=== PATIENT | male | born 1950 | race Caucasian/White ===

== ENCOUNTER 2020-10-22 14:53 | Outpatient (CLI) | payer MEDICARE, MEDICAID, SELFPAY ==
[2020-10-22 15:07] LABS: Basophils Absolute Auto 0.09 K/mm3 (0.00-0.10); Basophils Percent Auto 1.3 % (0.0-1.0); Eosinophils Absolute Auto 0.19 K/mm3 (0.02-0.50); Eosinophils Percent Auto 2.6 % (1.0-6.0); Hemoglobin 14.7 g/dL (12.4-15.3); Immature Granulocyte Absolute 0.01 K/mm3 (0.00-0.00); Immature Granulocyte Percent A 0.1 % (0.0-0.0); Lymphocytes Absolute Auto 2.86 K/mm3 (1.10-4.50); Lymphocytes Percent Auto 39.9 % (18.0-42.0); Mean Corpuscular HGB Conc 33.4 g/dL (32.0-36.0); Mean Corpuscular Hemoglobin 34.8 pg (27.0-31.0); Mean Corpuscular Volume 104.3 fL (78.0-102.0); Mean Platelet Volume 9.3 fl (8.7-11.0); Monocytes Absolute Auto 0.73 K/mm3 (0.10-0.90); Monocytes Percent Auto 10.2 % (2.0-11.0); Neutrophils Absolute Auto 3.3 K/mm3 (1.7-7.2); Neutrophils Percent Auto 45.9 % (50.0-70.0); Platelet Count Result 236 K/mm3 (150-420); Red Blood Count 4.22 M/mm3 (4.70-6.10); Red Cell Distribution Width 13.6 % (11.6-14.4); White Blood Count 7.2 K/mm3 (4.8-10.8)
[2020-10-22 16:26] LABS: Alanine Aminotransferase 37 U/L (16-63); Albumin Level 3.7 g/dL (3.4-5.0); Alkaline Phosphatase 77 U/L (46-116); Anion Gap 7 mmol/L (8-16); Aspartate Amino Transferase 27 U/L (15-37); Bilirubin,Total 0.3 mg/dL (0.00-1.00); Blood Urea Nitrogen 14 mg/dL (7-18); Calcium 8.7 mg/dL (8.5-10.1); Carbon Dioxide 31 mmol/L (21-32); Chloride 103 mmol/L (98-108); Cholesterol 216 mg/dL (0-200); Estimated Glomerular Filt Rate > 60; Glucose 86 mg/dL (70-99); HDL Direct 31 mg/dL (40-60); LDL Cholesterol Calculated 152 mg/dL (<130); Osmolality Calculated 291 mOsm/kg (285-295); Potassium 4.5 mmol/L (3.5-5.1); Sodium 141 mmol/L (136-145); Total Protein 7.2 g/dL (6.4-8.2); Triglycerides 167 mg/dL (0-150)
== END 2020-10-22 14:54 | disposition home or self-care (01) ==
LOC: CHSLAB 14:57
PROVIDERS: PCP Family Medicine; Visit Provider Family Medicine
DX: E66.01 Morbid (severe) obesity due to excess calories (principal); Z13.220 Encounter for screening for lipoid disorders; Z13.6 Encounter for screening for cardiovascular disorders
CPT/HCPCS: 36415; 80053; 80061; 85025

== ENCOUNTER 2024-12-02 09:45 | Emergency (ER) | payer MEDICARE, MEDICAID, SELFPAY ==
[2024-12-02] VITALS (19 sets, daily range): BP systolic 118–131; BP diastolic 57–89; PULSE 71–91; RESP 18; TEMP 36.8; O2SAT 93–99
--- NOTE | ~2024-12-02 | CT_ITS ---
EXAMINATION: CT cervical spine wo con DATE: 12/02/2024 10:52 INDICATION: Syncopal episode and altered mental status. TECHNIQUE: Computed tomography (CT) of the cervical spine was performed without intravenous contrast. Automated exposure control and iterative reconstruction technique were employed. The dose-length pro duct was 661.55 mGy-cm. COMPARISON: None FINDINGS: Mild upper thoracic levocurvature and minimal compensatory cervical dextrocurvature. Sagittal alignme nt is normal. Chronic appearing mild anterior vertebral body height loss at C5 and C6. No acute fract ure. Moderate to severe disc height loss with degenerative endplate changes and severe bilateral unco vertebral osteoarthritis at C5-C6. Mild disc height loss at C6-C7 and C7-T1. Disc bulge at C4-C5 and posterior disc osteophyte complexes at C5-C6 through C7-T1 contribute to multilevel central canal rosa nosis mild to moderate at C5-C6 and otherwise mild. Additional severe uncovertebral osteoarthritis on the left at C6-C7 with mild to moderate uncovertebral osteoarthritis at many of the remaining cervic al levels. There is also multilevel moderate to severe cervical facet osteoarthritis. This contribute s to moderate neural foraminal stenosis on the right at C2-C3, bilaterally at C5-C6 and on the left a t C6-7. Mild neural foraminal stenosis at many remaining cervical levels. Cervical soft tissues are u nremarkable. There is debris/cerumen at the bilateral external auditory canals. Visualized apices of lungs are clear. IMPRESSION: 1. Moderate to severe cervical spondylosis with chronic appearing mild anterior vertebral body height loss at C5 and C6. No acute osseous abnormality. Reviewed, dictated and finalized at location A.
--- NOTE | ~2024-12-02 | XR_ITS ---
Clinical Indication: Syncope PA and lateral views of the chest: Comparison: 08/31/2017 Findings: The lungs are clear, without evidence of focal consolidation or pleural effusion. Cardiome diastinal silhouette is stable. Bones and soft tissues are unremarkable. Impression: Clear lungs. Reviewed, dictated and finalized at location . Impression: Clear lungs.
--- NOTE | ~2024-12-02 | XR_ITS ---
Right elbow Technique: AP, oblique, and lateral views were obtained. Clinical History: Pain Findings: No acute fracture or dislocation is seen. Osseous alignment is anatomic. Joint spaces are p reserved. There is no displacement of the fat pads, and soft tissues are unremarkable. Impression: Unremarkable radiographs. Reviewed, dictated and finalized at location . Impression: Unremarkable radiographs.
--- NOTE | ~2024-12-02 | CT_ITS ---
Non-contrast Head CT History: Syncope Technique: Axial non-contrast imaging of the brain was performed. Dose reduction technique was used on this scan by utilizing automated exposure control and iterative reconstruction technique. The dose -length product (DLP) was 681.00 mGy-cm. Findings: There is no evidence of intracranial hemorrhage, mass lesion, or acute infarct. Brain par enchyma appears normal. The ventricles and subarachnoid spaces are normal in size. The calvarium ap pears normal. The visualized paranasal sinuses and mastoid air cells are clear. Impression: No significant abnormality seen. Reviewed, dictated and finalized at location . Impression: No significant abnormality seen.
--- NOTE | ~2024-12-02 | CT_ITS ---
Clinical Indication: Hypoxia CT Scan of the Chest with Contrast: Technique: Contiguous sections were acquired throughout the chest after intravenous administration of 100 cc of Omnipaque 350. Dose reduction technique was used on this scan by utilizing automated expos ure control and iterative reconstruction technique. The dose-length product (DLP) was 1071.76 mGy-cm. Findings: There is no evidence of any significant mediastinal, hilar or axillary lymphadenopathy. There is no f illing defect in the pulmonary arterial tree to suggest pulmonary embolus. There is no evidence of ao rtic dissection or aneurysm. There is no evidence of pleural or pericardial effusion. Lungs are clear. No pulmonary nodules or infiltrates are noted. Images through the upper abdomen reveal no abnormalities. Impression: No evidence of pulmonary embolus, aortic dissection, or aortic aneurysm. Clear lungs. Reviewed, dictated and finalized at [facility]. Impression: No evidence of pulmonary embolus, aortic dissection, or aortic aneurysm. Clear lungs.
--- NOTE | 2024-12-02 09:46 | ED.SYNCOPE ---
HPI - Syncope General Chief Complaint: Syncope Stated Complaint: syncope yesterday Time Seen by Provider: 12/02/24 09:46 Source: patient Mode of arrival: ambulatory Limitations: no limitations History of Present Illness HPI narrative: Patient is a 74-year-old male who lives at home alone and possibly had a syncopal episode yesterday but did fall to the ground from ground level and landed on his right elbow. Slight pain on the right elbow today. Patient was on the ground for up to 8 hours per history. Unclear if he soiled his undergarments as we notice a little bit on his lower extremities. Today his friend brought him to the ER for evaluation due to yesterday's events. No chest pain or shortness of breath. He appears somewhat winded upon exertion. No nausea vomiting or diarrhea or abdominal pain. No obvious neurological deficits. patient does not take any medication and has not seen a doctor in many years. MD complaint: collapsed Onset (ago): day(s) ( 2) -: minutes(s) ( patient collapsed with unclear possibly syncopal and said he was on the ground for 8 hours) Description of event: incontinence ( possibly stool) Prodromal symptoms: none Witnessed: No Context: other ( unclear situation but said he collapsed and was on the floor for 8 hours) Injuries sustained associated with event: RUE ( right elbow) Current symptoms: shortness of breath ( on exertion) and other ( right elbow pain) History: other ( none) Treatments prior to arrival: none Related Data Allergies Allergy/AdvReac Type Severity Reaction Status Date / Time No Known Allergies Allergy Verified 12/02/24 09:55 Review of Systems Review of Systems: All systems reviewed & are unremarkable except as noted in HPI and below Constitutional: Constitutional: Reports no additional constitutional complaints Eyes: Eyes: Reports no additional eye complaints ENT: Reports system reviewed and no additional complaints, except as documented Cardiovascular: Cardiovascular: Reports no additional cardiovascular complaints Respiratory: Respiratory: Reports no additional respiratory complaints Gastrointestinal: Gastrointestinal: Reports no additional gastrointestinal complaints Genitourinary: Genitourinary: Reports no additional male genitourinary complaints Musculoskeletal: Musculoskeletal: Reports no additional musculoskeletal complaints Integumentary/Breasts: Skin/Breast: Reports system reviewed and no additional complaints, except as docu Neurologic: Reports system reviewed and no additional complaints, except as documented Psychiatric: Psychiatric: Reports no additional psychiatric complaints Endocrine: Endocrine: Reports no additional endocrine complaints Hematologic/Lymphatic: Hematologic/Lymphatic: Reports no additional hematologic/lymphatic complaints Allergic/Immunologic: Allergic/Immunologic: Reports no additional allergic/immunologic complaints [facility] Past Medical History Medical History Encounter for lipid screening for cardiovascular disease Obesity, Class III, BMI 40-49.9 (morbid obesity) Social History Social History Smoking status: Never smoker Alcohol intake: current Substance use: never Living arrangements: alone Occupation/Education: retired Exam Const: General: healthy appearing and no acute distress Nutritional Appearance: well nourished and obese Orientation/consciousness: patient oriented x3 Limitations: no limitations HENMT: Head: normal to inspection Ears: external ears normal Face/Nose/Sinus: Normal external nose present Eyes: Conjunctivae: conjunctivae normal Pupils: Equal, round and reactive pupils present EOM: EOMs intact bilaterally Neck: Neck: normal visual inspection Chest: Chest palpation & inspection: normal inspection of the chest Resp: Effort & Inspection: normal respiratory effort and not labored Auscultation: clear to auscultation bilaterally and no crackles Cardio: Rate: regular rate Rhythm: regular rhythm Heart sounds: no murmurs GI: Inspection: non-distended GI Palp: Yes Soft to palpation and No Tenderness to palpation present (GI) Auscultation: normal bowel sounds : General: Yes bladder normal to palpation Back/Spine/Pelvis: Back: no CVA tenderness Skin: General skin exam: normal color Rashes: no rashes Wounds: no wounds Other: Patient has dirt on his back as well as some stool what appears to be on his lower extremities posteriorly Neuro: General: patient oriented x3, moves all extremities, no meningeal signs, no focal motor deficits and CN's II-XI intact bilaterally Cranial nerves: Yes Nystagmus not present Speech: normal speech Gait exam (Neuro): Normal gait present Other: fast exam is negative, NIH score is 0, GCS is 15 Extrem: General: normal to inspection Psych: Mental Status: mental status grossly normal Affect: normal affect Attitude: cooperative Course Vital Signs Vital signs: Vital Signs Pulse Rate 91 12/02/24 09:56 Oxygen Delivery Room Air 12/02/24 09:56 Temperature 36.8 C 12/02/24 10:00 Pulse Rate 71 12/02/24 10:00 Respiratory Rate 18 12/02/24 10:00 Blood Pressure 131/89 12/02/24 10:00 Pulse Oximetry 94 12/02/24 10:00 Oxygen Delivery Room Air 12/02/24 10:00 MDM - Syncope MDM Narrative Medical decision making narrative: patient is a 74-year-old male who has not seen a doctor in many years and not on medication with a collapse event yesterday and proceeded to stay on the ground for 8 hours due to the fact that he could not get off the floor. We will do a neurovascular workup at this time. we will transfer patient to [facility] for higher level medical care. Lab Data Attestation: I reviewed the patient's lab results. 12/02/24 10:16 12/02/24 10:16 Labs: Lab Results 12/02/24 12/02/24 12/02/24 Range/Units 09:54 10:16 12:33 WBC 19.4 H (4.8-10.8) K/mm3 RBC 4.37 L (4.70-6.10) M/mm3 Hgb 15.0 (12.4-15.3) g/dL Hct 44.8 (37.0-46.0) % MCV 102.5 H (78.0-102.0) fL MCH 34.3 H (27.0-31.0) pg MCHC 33.5 (32-36) g/dL RDW 13.7 (11.6-14.4) % Plt Count 212 (150-420) K/mm3 MPV 9.5 (8.7-11.0) fl Immature Gran % (Auto) 0.6 H (0.0-0.0) % Neut % (Auto) 79.4 H (50.0-70.0) % Lymph % (Auto) 10.2 L (18.0-42.0) % Lucas % (Auto) 9.3 (2.0-11.0) % Eos % (Auto) 0.1 L (1.0-6.0) % Baso % (Auto) 0.4 (0.0-1.0) % Lymph # (Auto) 1.97 (1.10-4.50) K/mm3 Lucas # (Auto) 1.80 H (0.10-0.90) K/mm3 Eos # (Auto) 0.01 L (0.02-0.50) K/mm3 Baso # (Auto) 0.08 (0.00-0.10) K/mm3 Abs Immat Gran (auto) 0.11 H (0.00-0.00) K/mm3 Absolute Neuts (auto) 15.40 H (1.70-7.20) K/mm3 Absolute Nucleated RBC 0.00 (0.00-0.00) K/mm3 Nucleated RBC % 0.0 (0-0.0) % PT 11.6 (9.50-12.1) Seconds INR 1.1 APTT 27.6 (23.9-30.70) Sec D-Dimer 0.97 H (0.19-0.50) mg/L Sodium 137 (137-145) mmol/L Potassium 4.2 (3.4-5.0) mmol/L Chloride 105 (98-107) mmol/L Carbon Dioxide 27 (22-30) mmol/L Anion Gap 5 (4-12) mmol/L BUN 24 H (9-20) mg/dL Creatinine 1.89 H (0.7-1.3) mg/dL Estim Creat Clear Calc Not Reportable Estimated GFR 35 L (59 - ) Glucose 110 (65-110) mg/dL Calculated Osmolality 289 (285-295) mOsm/kg Lactic Acid 1.0 (0.4-2.0) mmol/L Calcium 8.7 (8.4-10.2) mg/dL Total Bilirubin 2.3 H (0.2-1.3) mg/dL AST > 750 H (17-59) U/L ALT 147 H (6-50) U/L Alkaline Phosphatase 75 (38-126) U/L Total Creatine Kinase > 99608 H (55-170) U/L Troponin I 0.013 < 0.012 (0.000-0.034) ng/mL NT-Pro-B Natriuret Pep 575 H (19.9-100) pg/mL Total Protein 7.7 (6.3-8.2) g/dL Albumin 4.0 (3.5-5.1) g/dL Urine Color Yellow (Yellow) Urine Appearance Sl cloudy A (Clear) Urine pH 6.0 (5.0-8.0) Ur Specific [place] 1.015 (1.010-1.020) Urine Protein 3+ H (Negative) Urine Glucose (UA) Negative (Negative) Urine Ketones Negative (Negative) Ur Blood (Man) 3+ H (Negative) Urine Nitrate Positive H (Negative) Urine Bilirubin 1+ H (Negative) Urine Urobilinogen 1.0 (0.2-1.0) mg/dL Leukocyte Esterase Rfl 2+ H (Negative) ANUP/UL Urine RBC 6-10 H (0-2) /hpf Urine WBC 31-50 H (0-3) /hpf Ur Squamous Epith Cells Rare (Few) /hpf Urine Bacteria 2+ H (None) /hpf Imaging Data Attestation: I personally reviewed and interpreted this imaging study as follows: Radiologist's impression: chest x-rays negative for acute process CT scan of the head is negative for acute process CT scan of cervical spine is negative for acute process x-ray of right elbow is negative for acute process CTA of the chest is negative for acute process ECG Data EKG #1: Attestation: I personally reviewed and interpreted this ECG as follows: ECG completion date: 12/02/24 ECG completion time: 10:11 EKG Interpretation: normal rate, sinus rhythm, no ectopy, non-specific ST changes, normal QRS, normal QT and left axis Discharge Plan Discharge Clinical Impression: Sepsis secondary to UTI, Acute dehydration, Transaminitis, VALERIE (acute kidney injury), Hypoxia Rhabdomyolysis Qualifiers: Rhabdomyolysis type: traumatic Encounter type: initial encounter Qualified Code(s): T79.6XXA - Traumatic ischemia of muscle, initial encounter Patient Disposition: Acute Care Hospital Condition: Stable Patient Language: [place] Prescriptions: No Action atorvastatin 40 mg tablet 40 mg PO DAILY Qty: 90 3RF Follow-up/Referrals: Jude Connor MD [Primary Care Provider] - Time of Disposition: 11:57
--- OUTSIDE RECORDS SUMMARY | 2024-12-02 10:00 | XMS_ITS | Continuity of Care Document ---
Author Name [facility] Organization [facility] Care Team Providers Care Nremt Name Role Phone [facility] Unavailable Unavailable Problems Combined list of problems from Department of Defense and Veterans Affairs facilities. It does not include entries that were removed or entered in error. Problem Status Onset Date Problem Type Date of Resolution Comments Source Hyperlipidemia Active Condition [facility] Impaired Fasting Glucose (SCT [id number]) Active Condition [facility] Nightmare Active Condition [facility] Immunizations Combined list of available immunizations from the Department of Defense and Veterans Affairs facilities. Immunization Series Date Given Administered By Site Reaction Lot Number CVX Code Drug Sqe Status Comments Source COVID-19 (MODERNA), MRNA, LNP-S, PF, 100 MCG/0.5ML DOSE OR 50 MCG/0.25ML DOSE 3 2020 207 complet ed [employer]IST[employer]ICA L [employer] ON - FROM OTHER REGISTRY, [facility] COVID-19 (MODERNA), MRNA, LNP-S, PF, 100 MCG/0.5ML DOSE OR 50 MCG/0.25ML DOSE 2 2020 207 complet ed HISTORICA L INFORMATI ON - FROM OTHER REGISTRY, [facility] COVID-19 (MODERNA), MRNA, LNP-S, PF, 100 MCG/0.5ML DOSE OR 50 MCG/0.25ML DOSE 1 2020 207 complet ed HISTORICA L INFORMATI ON - FROM OTHER REGISTRY, [facility] INFLUENZA, INJECTABLE, QUADRIVALENT 2018 158 complet ed 02, Partner: [facility]. Administe red by: [facility] Clinician (NPI=Not Provided) . Partner 91 Lot#: [id number] Mfr: [facility] INFLUENZA, INJECTABLE, QUADRIVALENT, PRESERVATIVE FREE 2017 150 complet ed 02, Partner: [facility]. [facility] (NPI=Not Provided[facility] . Partner 91 Lot#: [id number] Mfr: [employer] [facility] INFLUENZA, INJECTABLE, QUADRIVALENT, PRESERVATIVE FREE 1 2017 150 complet ed HISTORICA L INFORMATI ON - FROM OTHER REGISTRY, [facility] INFLUENZA (HISTORICAL) 2003 88 complet ed [facility] TD(ADULT) UNSPECIFIED FORMULATION 1993 139 complet ed MAY BE OVERDUE [facility] Results Combined list of recent chemistry, hematology and other laboratory results from Department of Defense and Veterans Affairs, ranging from 15 months to all on record, depending upon the facility. Order Name Results Value Reference Range Date Interpretation Specimen Comments Source OCCULT BLOOD FIT X1 SCREEN (550) HEMOGLOBIN .GASTROINT ESTINAL.LO WER [PRESENCE] IN STOOL BY IMMUNOASSA Y POSITIVE 02/18 Specimen Type: FECES No comment entered. Ordering Provider: AMELIA GONZALEZ Report Released Date/Time: Feb 16, 2023 09:30 AM Reporting Lab: [address] [address] Performing Lab: [address] [address] [facility] CBC W/DIFF LEUKOCYTES [#/VOLUME] IN BLOOD BY AUTOMATED COUNT 8.7 10*3/uL 4.0 - 11.0 02/16 Specimen Type: BLOOD No comment entered. Ordering Provider: AMELIA GONZALEZ Report Released Date/Time: Feb 16, 2023 09:45 AM Reporting Lab: [address] [address] Performing Lab: [address] [address] [facility] CBC W/DIFF ERYTHROCYT ES [#/VOLUME] IN BLOOD BY AUTOMATED COUNT 4.57 10*6/uL 4.20 - 5.70 02/16 Specimen Type: BLOOD No comment entered. Ordering Provider: AMELIA GONZALEZ Report Released Date/Time: Feb 16, 2023 09:45 AM Reporting Lab: [address] [address] Performing Lab: [address] [address] [facility] CBC W/DIFF HEMOGLOBIN [MASS/VOLU ME] IN BLOOD 15.9 g/dL 13.0 - 17.0 02/16 Specimen Type: BLOOD No comment entered. Ordering Provider: AMELIA GONZALEZ Report Released Date/Time: Feb 16, 2023 09:45 AM Reporting Lab: [address] [address] Performing Lab: [address] [address] [facility] CBC W/DIFF HEMATOCRIT [VOLUME FRACTION] OF BLOOD BY AUTOMATED COUNT 47.6 40.0 - 51.0 02/16 Specimen Type: BLOOD No comment entered. Ordering Provider: AMELIA GONZALEZ Report Released Date/Time: Feb 16, 2023 09:45 AM Reporting Lab: [address] [address] Performing Lab: [address] [address] [facility] CBC W/DIFF MCV [ENTITIC VOLUME] BY AUTOMATED COUNT 104.2 fL 82 - 99 02/16 H Specimen Type: BLOOD No comment entered. Ordering Provider: AMELIA GONZALEZ Report Released Date/Time: Feb 16, 2023 09:45 AM Reporting Lab: [address] [address] Performing Lab: [address] [address] [facility] CBC W/DIFF MCHC [MASS/VOLU ME] BY AUTOMATED COUNT 34.8 pg 27 - 34 02/16 H Specimen Type: BLOOD No comment entered. Ordering Provider: AMELIA GONZALEZ Report Released Date/Time: Feb 16, 2023 09:45 AM Reporting Lab: [address] [address] Performing Lab: [address] [address] [facility] CBC W/DIFF MCHC [MASS/VOLU ME] BY AUTOMATED COUNT 33.4 g/dL 31 - 37 02/16 Specimen Type: BLOOD No comment entered. Ordering Provider: AMELIA GONZALEZ Report Released Date/Time: Feb 16, 2023 09:45 AM Reporting Lab: [address] [address] Performing Lab: [facility] [address] [facility] [address] [facility] CBC W/DIFF PLATELET MEAN VOLUME [ENTITIC VOLUME] IN BLOOD BY AUTOMATED COUNT 10.3 fL 8 - 12 02/16 Specimen Type: BLOOD No comment entered. Ordering Provider: AMELIA GONZALEZ Report Released Date/Time: Feb 16, 2023 09:45 AM Reporting Lab: [address] [address] Performing Lab: [address] [address] [facility] CBC W/DIFF PLATELETS [#/VOLUME] IN BLOOD BY AUTOMATED COUNT 265 10*3/uL 130 - 400 02/16 Specimen Type: BLOOD No comment entered. Ordering Provider: AMELIA GONZALEZ Report Released Date/Time: Feb 16, 2023 09:45 AM Reporting Lab: [address] [address] Performing Lab: [address] [address] [facility] CBC W/DIFF ERYTHROCYT E DISTRIBUTI ON WIDTH [RATIO] BY AUTOMATED COUNT 13.4 < 15.0 - 15.0 02/16 Specimen Type: BLOOD No comment entered. Ordering Provider: AMELIA GONZALEZ Report Released Date/Time: Feb 16, 2023 09:45 AM Reporting Lab: [address] [address] Performing Lab: [address] [address] [facility] CBC W/DIFF NEUTROPHIL S/100 LEUKOCYTES IN BLOOD BY AUTOMATED COUNT 62.8 02/16 Specimen Type: BLOOD No comment entered. Ordering Provider: AMELIA GONZALEZ Report Released Date/Time: Feb 16, 2023 09:45 AM Reporting Lab: [address] [address] Performing Lab: [address] [address] [facility] CBC W/DIFF LYMPHOCYTE S/100 LEUKOCYTES IN BLOOD BY AUTOMATED COUNT 26.1 02/16 Specimen Type: BLOOD No comment entered. Ordering Provider: AMELIA GONZALEZ Report Released Date/Time: Feb 16, 2023 09:45 AM Reporting Lab: [address] [address] Performing Lab: [address] [address] [facility] CBC W/DIFF MONOCYTES/ 100 LEUKOCYTES IN BLOOD BY AUTOMATED COUNT 9.1 02/16 Specimen Type: BLOOD No comment entered. Ordering Provider: AMELIA GONZALEZ Report Released Date/Time: Feb 16, 2023 09:45 AM Reporting Lab: [address] [address] Performing Lab: [address] [address] [facility] CBC W/DIFF EOSINOPHIL S/100 LEUKOCYTES IN BLOOD BY AUTOMATED COUNT 0.8 02/16 Specimen Type: BLOOD No comment entered. Ordering Provider: AMELIA GONZALEZ Report Released Date/Time: Feb 16, 2023 09:45 AM Reporting Lab: [address] [address] Performing Lab: [address] [address] [facility] CBC W/DIFF BASOPHILS/ 100 LEUKOCYTES IN BLOOD BY AUTOMATED COUNT 1.0 02/16 Specimen Type: BLOOD No comment entered. Ordering Provider: AMELIA GONZALEZ Report Released Date/Time: Feb 16, 2023 09:45 AM Reporting Lab: [address] [address] Performing Lab: [address] [address] [facility] CBC W/DIFF IMMATURE GRANULOCYT ES/100 LEUKOCYTES IN BLOOD 0.2 02/16 Specimen Type: BLOOD No comment entered. Ordering Provider: AMELIA GONZALEZ Report Released Date/Time: Feb 16, 2023 09:45 AM Reporting Lab: [address] [address] Performing Lab: [address] [address] [facility] CBC W/DIFF NEUTROPHIL S [#/VOLUME] IN BLOOD BY AUTOMATED COUNT 5.5 10*3/uL 1.5 - 8.0 02/16 Specimen Type: BLOOD No comment entered. Ordering Provider: AMELIA GONZALEZ Report Released Date/Time: Feb 16, 2023 09:45 AM Reporting Lab: [address] [address] Performing Lab: [address] [address] [facility] CBC W/DIFF LYMPHOCYTE S [#/VOLUME] IN BLOOD BY AUTOMATED COUNT 2.3 10*3/uL 1.0 - 4.0 02/16 Specimen Type: BLOOD No comment entered. Ordering Provider: AMELIA GONZALEZ Report Released Date/Time: Feb 16, 2023 09:45 AM Reporting Lab: [address] [address] Performing Lab: [address] [address] [facility] CBC W/DIFF MONOCYTES [#/VOLUME] IN BLOOD BY AUTOMATED COUNT 0.8 10*3/uL 0.2 - 1.0 02/16 Specimen Type: BLOOD No comment entered. Ordering Provider: AMELIA GONZALEZ Report Released Date/Time: Feb 16, 2023 09:45 AM Reporting Lab: [address] [address] Performing Lab: [address] [address] [facility] CBC W/DIFF EOSINOPHIL S [#/VOLUME] IN BLOOD BY AUTOMATED COUNT 0.1 10*3/uL 0 - 0.4 02/16 Specimen Type: BLOOD No comment entered. Ordering Provider: AMELIA GONZALEZ Report Released Date/Time: Feb 16, 2023 09:45 AM Reporting Lab: [address] [address] Performing Lab: [address] [address] [facility] CBC W/DIFF BASOPHILS [#/VOLUME] IN BLOOD BY AUTOMATED COUNT 0.1 10*3/uL 0 - 0.2 02/16 Specimen Type: BLOOD No comment entered. Ordering Provider: AMELIA GONZALEZ Report Released Date/Time: Feb 16, 2023 09:45 AM Reporting Lab: [address] [address] Performing Lab: [facility] [address] [facility] [address] [facility] CBC W/DIFF IMMATURE GRANULOCYT ES/100 LEUKOCYTES IN BLOOD <0.110*3 /uL 0 - 0.5 02/16 Specimen Type: BLOOD No comment entered. Ordering Provider: AMELIA GONZALEZ Report Released Date/Time: Feb 16, 2023 09:45 AM Reporting Lab: [address] [address] Performing Lab: [address] [address] [facility] CBC W/DIFF NUCLEATED ERYTHROCYT ES/100 ERYTHROCYT ES IN BLOOD 0.0 /100{WBC s} 0 - 0.2 02/16 Specimen Type: BLOOD No comment entered. Ordering Provider: AMELIA GONZALEZ Report Released Date/Time: Feb 16, 2023 09:45 AM Reporting Lab: [address] [address] Performing Lab: [address] [address] [facility] CBC W/DIFF NUCLEATED ERYTHROCYT ES [#/VOLUME] IN BLOOD <0.0110* 3/uL 0 - 0.012 02/16 Specimen Type: BLOOD No comment entered. Ordering Provider: AMELIA GONZALEZ Report Released Date/Time: Feb 16, 2023 09:45 AM Reporting Lab: [address] [address] Performing Lab: [address] [address] [facility] A1C % HEMOGLOBIN A1C/HEMOGL OBIN.TOTAL IN BLOOD 5.7 0.0 - 5.6 02/16 H Specimen Type: BLOOD Comment: Normal: < or = 5.6% Pre-diabete s: 5.7-6.4% Diabetes Mellitus: > or = 6.5% Values obtained from A1C measurement s can vary. For typical A1C assays, a reported value of 7.0 could actually be between 6.72 and 7.28 if measured by a reference method. A reported value of 9.0 could actually be between 8.73 and 9.27. Ref: http://www. ngsp.org/[place] Pdata.asp Ordering Provider: AMELIA GONZALEZ Report Released Date/Time: Feb 16, 2023 09:45 AM Reporting Lab: [address] [address] Performing Lab: [address] [address] [facility] COMPREHE NSIVE PNL ANION GAP IN SERUM OR PLASMA 14 mmol/L - 02/16 Specimen Type: PLASMA Comment: Low-risk levels (desirable) <200 mg/dL Moderate-ri sk levels (borderline ) 200-239 mg/dL High-risk levels: >= 240 mg/dL Normal: <150 mg/dL -Borderline High: 1580-199 mg/dL -High: 200-499 mg/dL -Very High: >500 mg/dL eGFR was calculated using the CKD-EPI Creatinine (2020) equation. Optimal: <100 mg/dL -Near Optimal/Abo ve Optimal: 100-129 mg/dL -Borderline High: 130-159 mg/dL -High: 160-189 mg/dL -Very High: >=190 mg/dL Ordering Provider: AMELIA GONZALEZ Report Released Date/Time: Feb 16, 2023 09:45 AM Reporting Lab: [address] [address] Performing Lab: [address] [address] [facility] COMPREH NSIVE PNL GLOMERULAR FILTRATION RATE/1.73 SQ M.PREDICTE D [VOLUME RATE/AREA] IN SERUM, PLASMA OR BLOOD BY CREATININE -BASED FORMULA (CKD-EPI 2020) 87 mL/min 60 02/16 Specimen Type: PLASMA Comment: Low-risk levels (desirable) <200 mg/dL Moderate-ri sk levels (borderline ) 200-239 mg/dL High-risk levels: >= 240 mg/dL Normal: <150 mg/dL -Borderline High: 1580-199 mg/dL -High: 200-499 mg/dL -Very High: >500 mg/dL eGFR was calculated using the CKD-EPI Creatinine (2020) equation. Optimal: <100 mg/dL -Near Optimal/Abo ve Optimal: 100-129 mg/dL -Borderline High: 130-159 mg/dL -High: 160-189 mg/dL -Very High: >=190 mg/dL Ordering Provider: AMELIA GONZALEZ Report Released Date/Time: Feb 16, 2023 09:45 AM Reporting Lab: [address] [address] Performing Lab: [address] [address] [facility] COMPREHE NSIVE PNL GLUCOSE [MASS/VOLU ME] IN SERUM OR PLASMA 88 mg/dL 70 - 99 02/16 Specimen Type: PLASMA Comment: Low-risk levels (desirable) <200 mg/dL Moderate-ri sk levels (borderline ) 200-239 mg/dL High-risk levels: >= 240 mg/dL Normal: <150 mg/dL -Borderline High: 1580-199 mg/dL -High: 200-499 mg/dL -Very High: >500 mg/dL eGFR was calculated using the CKD-EPI Creatinine (2020) equation. Optimal: <100 mg/dL -Near Optimal/Abo ve Optimal: 100-129 mg/dL -Borderline High: 130-159 mg/dL -High: 160-189 mg/dL -Very High: >=190 mg/dL Ordering Provider: AMELIA GONZALEZ Report Released Date/Time: Feb 16, 2023 09:45 AM Reporting Lab: [address] [address] Performing Lab: [address] [address] [facility] COMPREHE NSIVE PNL POTASSIUM [MOLES/VOL UME] IN SERUM OR PLASMA 4.3 mmol/L 3.5 - 4.7 02/16 Specimen Type: PLASMA Comment: Low-risk levels (desirable) <200 mg/dL Moderate-ri sk levels (borderline ) 200-239 mg/dL High-risk levels: >= 240 mg/dL Normal: <150 mg/dL -Borderline High: 1580-199 mg/dL -High: 200-499 mg/dL -Very High: >500 mg/dL eGFR was calculated using the CKD-EPI Creatinine (2020) equation. Optimal: <100 mg/dL -Near Optimal/Abo ve Optimal: 100-129 mg/dL -Borderline High: 130-159 mg/dL -High: 160-189 mg/dL -Very High: >=190 mg/dL Ordering Provider: AMELIA GONZALEZ Report Released Date/Time: Feb 16, 2023 09:45 AM Reporting Lab: [address] [address] Performing Lab: [address] [address] [facility] COMPREHE NSIVE PNL SODIUM [MOLES/VOL UME] IN SERUM OR PLASMA 138 mmol/L 136 - 145 02/16 Specimen Type: PLASMA Comment: Low-risk levels (desirable) <200 mg/dL Moderate-ri sk levels (borderline ) 200-239 mg/dL High-risk levels: >= 240 mg/dL Normal: <150 mg/dL -Borderline High: 1580-199 mg/dL -High: 200-499 mg/dL -Very High: >500 mg/dL eGFR was calculated using the CKD-EPI Creatinine (2020) equation. Optimal: <100 mg/dL -Near Optimal/Abo ve Optimal: 100-129 mg/dL -Borderline High: 130-159 mg/dL -High: 160-189 mg/dL -Very High: >=190 mg/dL Ordering Provider: AMELIA GONZALEZ Report Released Date/Time: Feb 16, 2023 09:45 AM Reporting Lab: [address] [address] Performing Lab: [address] [address] [facility] COMPREHE NSIVE PNL BILIRUBIN. TOTAL [MASS/VOLU ME] IN SERUM OR PLASMA 0.6 mg/dL 0.2 - 1.2 02/16 Specimen Type: PLASMA Comment: Low-risk levels (desirable) <200 mg/dL Moderate-ri sk levels (borderline ) 200-239 mg/dL High-risk levels: >= 240 mg/dL Normal: <150 mg/dL -Borderline High: 1580-199 mg/dL -High: 200-499 mg/dL -Very High: >500 mg/dL eGFR was calculated using the CKD-EPI Creatinine (2020) equation. Optimal: <100 mg/dL -Near Optimal/Abo ve Optimal: 100-129 mg/dL -Borderline High: 130-159 mg/dL -High: 160-189 mg/dL -Very High: >=190 mg/dL Ordering Provider: AMELIA GONZALEZ Report Released Date/Time: Feb 16, 2023 09:45 AM Reporting Lab: [address] [address] Performing Lab: [address] [address] [facility] COMPREHE NSIVE PNL PROTEIN [MASS/VOLU ME] IN SERUM OR PLASMA 7.5 g/dL 5.7 - 8.2 02/16 Specimen Type: PLASMA Comment: Low-risk levels (desirable) <200 mg/dL Moderate-ri sk levels (borderline ) 200-239 mg/dL High-risk levels: >= 240 mg/dL Normal: <150 mg/dL -Borderline High: 1580-199 mg/dL -High: 200-499 mg/dL -Very High: >500 mg/dL eGFR was calculated using the CKD-EPI Creatinine (2020) equation. Optimal: <100 mg/dL -Near Optimal/Abo ve Optimal: 100-129 mg/dL -Borderline High: 130-159 mg/dL -High: 160-189 mg/dL -Very High: >=190 mg/dL Ordering Provider: AMELIA GONZALEZ Report Released Date/Time: Feb 16, 2023 09:45 AM Reporting Lab: [address] [address] Performing Lab: [address] [address] [facility] COMPREHE NSIVE PNL ALBUMIN [MASS/VOLU ME] IN SERUM OR PLASMA 4.5 g/dL 3.4 - 5.0 02/16 Specimen Type: PLASMA Comment: Low-risk levels (desirable) <200 mg/dL Moderate-ri sk levels (borderline ) 200-239 mg/dL High-risk levels: >= 240 mg/dL Normal: <150 mg/dL -Borderline High: 1580-199 mg/dL -High: 200-499 mg/dL -Very High: >500 mg/dL eGFR was calculated using the CKD-EPI Creatinine (2020) equation. Optimal: <100 mg/dL -Near Optimal/Abo ve Optimal: 100-129 mg/dL -Borderline High: 130-159 mg/dL -High: 160-189 mg/dL -Very High: >=190 mg/dL Ordering Provider: AMELIA GONZALEZ Report Released Date/Time: Feb 16, 2023 09:45 AM Reporting Lab: [address] [address] Performing Lab: [address] [address] [facility] COMPREHE NSIVE PNL ALKALINE PHOSPHATAS E [ENZYMATIC ACTIVITY/V OLUME] IN SERUM OR PLASMA 69 U/L 45 - 117 02/16 Specimen Type: PLASMA Comment: Low-risk levels (desirable) <200 mg/dL Moderate-ri sk levels (borderline ) 200-239 mg/dL High-risk levels: >= 240 mg/dL Normal: <150 mg/dL -Borderline High: 1580-199 mg/dL -High: 200-499 mg/dL -Very High: >500 mg/dL eGFR was calculated using the CKD-EPI Creatinine (2020) equation. Optimal: <100 mg/dL -Near Optimal/Abo ve Optimal: 100-129 mg/dL -Borderline High: 130-159 mg/dL -High: 160-189 mg/dL -Very High: >=190 mg/dL Ordering Provider: AMELIA GONZALEZ Report Released Date/Time: Feb 16, 2023 09:45 AM Reporting Lab: [address] [address] Performing Lab: [address] [address] [facility] COMPREHE NSIVE PNL ALANINE AMINOTRANS FERASE [ENZYMATIC ACTIVITY/V OLUME] IN SERUM OR PLASMA 27 U/L 10 - 65 02/16 Specimen Type: PLASMA Comment: Low-risk levels (desirable) <200 mg/dL Moderate-ri sk levels (borderline ) 200-239 mg/dL High-risk levels: >= 240 mg/dL Normal: <150 mg/dL -Borderline High: 1580-199 mg/dL -High: 200-499 mg/dL -Very High: >500 mg/dL eGFR was calculated using the CKD-EPI Creatinine (2020) equation. Optimal: <100 mg/dL -Near Optimal/Abo ve Optimal: 100-129 mg/dL -Borderline High: 130-159 mg/dL -High: 160-189 mg/dL -Very High: >=190 mg/dL Ordering Provider: AMELIA GONZALEZ Report Released Date/Time: Feb 16, 2023 09:45 AM Reporting Lab: [address] [address] Performing Lab: [address] [address] [facility] COMPREHE NSIVE PNL ASPARTATE AMINOTRANS FERASE [ENZYMATIC ACTIVITY/V OLUME] IN SERUM OR PLASMA 25 U/L 10 - 02/16 Specimen Type: PLASMA Comment: Low-risk levels (desirable) <200 mg/dL Moderate-ri sk levels (borderline ) 200-239 mg/dL High-risk levels: >= 240 mg/dL Normal: <150 mg/dL -Borderline High: 1580-199 mg/dL -High: 200-499 mg/dL -Very High: >500 mg/dL eGFR was calculated using the CKD-EPI Creatinine (2020) equation. Optimal: <100 mg/dL -Near Optimal/Abo ve Optimal: 100-129 mg/dL -Borderline High: 130-159 mg/dL -High: 160-189 mg/dL -Very High: >=190 mg/dL Ordering Provider: AMELIA GONZALEZ Report Released Date/Time: Feb 16, 2023 09:45 AM Reporting Lab: [address] [address] Performing Lab: [address] [address] [facility] COMPREHE NSIVE PNL UREA NITROGEN [MASS/VOLU ME] IN SERUM OR PLASMA 12 mg/dL 7 - 02/16 Specimen Type: PLASMA Comment: Low-risk levels (desirable) <200 mg/dL Moderate-ri sk levels (borderline ) 200-239 mg/dL High-risk levels: >= 240 mg/dL Normal: <150 mg/dL -Borderline High: 1580-199 mg/dL -High: 200-499 mg/dL -Very High: >500 mg/dL eGFR was calculated using the CKD-EPI Creatinine (2020) equation. Optimal: <100 mg/dL -Near Optimal/Abo ve Optimal: 100-129 mg/dL -Borderline High: 130-159 mg/dL -High: 160-189 mg/dL -Very High: >=190 mg/dL Ordering Provider: AMELIA GONZALEZ Report Released Date/Time: Feb 16, 2023 09:45 AM Reporting Lab: [address] [address] Performing Lab: [address] [address] [facility] COMPREHE NSIVE PNL CALCIUM, TOTAL 9.4 mg/dL 8.7 - 10.4 02/16 Specimen Type: PLASMA Comment: Low-risk levels (desirable) <200 mg/dL Moderate-ri sk levels (borderline ) 200-239 mg/dL High-risk levels: >= 240 mg/dL Normal: <150 mg/dL -Borderline High: 1580-199 mg/dL -High: 200-499 mg/dL -Very High: >500 mg/dL eGFR was calculated using the CKD-EPI Creatinine (2020) equation. Optimal: <100 mg/dL -Near Optimal/Abo ve Optimal: 100-129 mg/dL -Borderline High: 130-159 mg/dL -High: 160-189 mg/dL -Very High: >=190 mg/dL Ordering Provider: AMELIA GONZALEZ Report Released Date/Time: Feb 16, 2023 09:45 AM Reporting Lab: [address] [address] Performing Lab: [address] [address] [facility] COMPREHE NSIVE PNL CARBON DIOXIDE, TOTAL [MOLES/VOL UME] IN SERUM OR PLASMA 27.0 mmol/L 21.0 - 32.0 02/16 Specimen Type: PLASMA Comment: Low-risk levels (desirable) <200 mg/dL Moderate-ri sk levels (borderline ) 200-239 mg/dL High-risk levels: >= 240 mg/dL Normal: <150 mg/dL -Borderline High: 1580-199 mg/dL -High: 200-499 mg/dL -Very High: >500 mg/dL eGFR was calculated using the CKD-EPI Creatinine (2020) equation. Optimal: <100 mg/dL -Near Optimal/Abo ve Optimal: 100-129 mg/dL -Borderline High: 130-159 mg/dL -High: 160-189 mg/dL -Very High: >=190 mg/dL Ordering Provider: AMELIA GONZALEZ Report Released Date/Time: Feb 16, 2023 09:45 AM Reporting Lab: [address] [address] Performing Lab: [address] [address] [facility] COMPREHE NSIVE PNL CHLORIDE [MOLES/VOL UME] IN SERUM OR PLASMA 101 mmol/L 98 - 109 02/16 Specimen Type: PLASMA Comment: Low-risk levels (desirable) <200 mg/dL Moderate-ri sk levels (borderline ) 200-239 mg/dL High-risk levels: >= 240 mg/dL Normal: <150 mg/dL -Borderline High: 1580-199 mg/dL -High: 200-499 mg/dL -Very High: >500 mg/dL eGFR was calculated using the CKD-EPI Creatinine (2020) equation. Optimal: <100 mg/dL -Near Optimal/Abo ve Optimal: 100-129 mg/dL -Borderline High: 130-159 mg/dL -High: 160-189 mg/dL -Very High: >=190 mg/dL Ordering Provider: AMELIA GONZALEZ Report Released Date/Time: Feb 16, 2023 09:45 AM Reporting Lab: [address] [id number] Performing Lab: [address] [phone] [facility] COMPREHE NSIVE PNL CREATININE [MASS/VOLU ME] IN URINE 0.92 mg/dL 0.67 - 1.17 02/16 Specimen Type: PLASMA Comment: Low-risk levels (desirable) <200 mg/dL Moderate-ri sk levels (borderline ) 200-239 mg/dL High-risk levels: >= 240 mg/dL Normal: <150 mg/dL -Borderline High: 1580-199 mg/dL -High: 200-499 mg/dL -Very High: >500 mg/dL eGFR was calculated using the CKD-EPI Creatinine (2020) equation. Optimal: <100 mg/dL -Near Optimal/Abo ve Optimal: 100-129 mg/dL -Borderline High: 130-159 mg/dL -High: 160-189 mg/dL -Very High: >=190 mg/dL Ordering Provider: AMELIA GONZALEZ Report Released Date/Time: Feb 16, 2023 09:45 AM Reporting Lab: [address] [id number] Performing Lab: [address] [phone] [facility] LIPID PNL CHOLESTERO L IN HDL [MASS/VOLU ME] IN SERUM OR PLASMA 30.9 mg/dL 60 02/16 L Specimen Type: PLASMA Comment: Low-risk levels (desirable) <200 mg/dL Moderate-ri sk levels (borderline ) 200-239 mg/dL High-risk levels: >= 240 mg/dL Normal: <150 mg/dL -Borderline High: 1580-199 mg/dL -High: 200-499 mg/dL -Very High: >500 mg/dL eGFR was calculated using the CKD-EPI Creatinine (2020) equation. Optimal: <100 mg/dL -Near Optimal/Abo ve Optimal: 100-129 mg/dL -Borderline High: 130-159 mg/dL -High: 160-189 mg/dL -Very High: >=190 mg/dL Ordering Provider: AMELIA GONZALEZ Report Released Date/Time: Feb 16, 2023 09:45 AM Reporting Lab: [address] [address] Performing Lab: [address] [address] [facility] LIPID PNL TRIGLYCERI DE [MASS/VOLU ME] IN SERUM OR PLASMA 200 mg/dL 02/16 H Specimen Type: PLASMA Comment: Low-risk levels (desirable) <200 mg/dL Moderate-ri sk levels (borderline ) 200-239 mg/dL High-risk levels: >= 240 mg/dL Normal: <150 mg/dL -Borderline High: 1580-199 mg/dL -High: 200-499 mg/dL -Very High: >500 mg/dL eGFR was calculated using the CKD-EPI Creatinine (2020) equation. Optimal: <100 mg/dL -Near Optimal/Abo ve Optimal: 100-129 mg/dL -Borderline High: 130-159 mg/dL -High: 160-189 mg/dL -Very High: >=190 mg/dL Ordering Provider: AMELIA GONZALEZ Report Released Date/Time: Feb 16, 2023 09:45 AM Reporting Lab: [address] [phone] Performing Lab: [address] [address] [facility] LIPID PNL CHOLESTERO L IN LDL [MASS/VOLU ME] IN SERUM OR PLASMA BY DIRECT ASSAY [facility] 02/16 Specimen Type: PLASMA Comment: Low-risk levels (desirable) <200 mg/dL Moderate-ri sk levels (borderline ) 200-239 mg/dL High-risk levels: >= 240 mg/dL Normal: <150 mg/dL -Borderline High: 1580-199 mg/dL -High: 200-499 mg/dL -Very High: >500 mg/dL eGFR was calculated using the CKD-EPI Creatinine (2020) equation. Optimal: <100 mg/dL -Near Optimal/Abo ve Optimal: 100-129 mg/dL -Borderline High: 130-159 mg/dL -High: 160-189 mg/dL -Very High: >=190 mg/dL Ordering Provider: AMELIA GONZALEZ Report Released Date/Time: Feb 16, 2023 09:45 AM Reporting Lab: [address] [phone] Performing Lab: [address] [address] [facility] LIPID PNL CHOLESTERO L [MASS/VOLU ME] IN SERUM OR PLASMA 212 mg/dL 02/16 H Specimen Type: PLASMA Comment: Low-risk levels (desirable) <200 mg/dL Moderate-ri sk levels (borderline ) 200-239 mg/dL High-risk levels: >= 240 mg/dL Normal: <150 mg/dL -Borderline High: 1580-199 mg/dL -High: 200-499 mg/dL -Very High: >500 mg/dL eGFR was calculated using the CKD-EPI Creatinine (2020) equation. Optimal: <100 mg/dL -Near Optimal/Abo ve Optimal: 100-129 mg/dL -Borderline High: 130-159 mg/dL -High: 160-189 mg/dL -Very High: >=190 mg/dL Ordering Provider: AMELIA GONZALEZ Report Released Date/Time: Feb 16, 2023 09:45 AM Reporting Lab: [address] [address] Performing Lab: [address] [address] [facility] LIPID PNL CHOLESTERO L IN LDL [MASS/VOLU ME] IN SERUM OR PLASMA BY CALCULATIO N 141.1 mg/dL 02/16 H Specimen Type: PLASMA Comment: Low-risk levels (desirable) <200 mg/dL Moderate-ri sk levels (borderline ) 200-239 mg/dL High-risk levels: >= 240 mg/dL Normal: <150 mg/dL -Borderline High: 1580-199 mg/dL -High: 200-499 mg/dL -Very High: >500 mg/dL eGFR was calculated using the CKD-EPI Creatinine (2020) equation. Optimal: <100 mg/dL -Near Optimal/Abo ve Optimal: 100-129 mg/dL -Borderline High: 130-159 mg/dL -High: 160-189 mg/dL -Very High: >=190 mg/dL Ordering Provider: AMELIA GOZNALEZ Report Released Date/Time: Feb 16, 2023 09:45 AM Reporting Lab: [address] [address] Performing Lab: [address] [address] [facility] PSA TOTAL EIA PROSTATE SPECIFIC AG [MASS/VOLU ME] IN SERUM OR PLASMA 0.83 ng/mL 0.00 - 4.00 02/16 Specimen Type: SERUM Comment: PSA was performed on the Siemens Atellica Immunoassay Analyzer. Ordering Provider: AMELIA GONZALEZ Report Released Date/Time: Feb 16, 2023 09:45 AM Reporting Lab: [address] [address] Performing Lab: [address] [address] [facility] THYROID CASCADE PANEL THYROTROPI N [UNITS/VOL UME] IN SERUM OR PLASMA 2.513 u[IU]/mL 0.550 - 4.780 02/16 Specimen Type: SERUM Comment: PSA was performed on the Siemens Atellica Immunoassay Analyzer. Ordering Provider: AMELIA GONZALEZ Report Released Date/Time: Feb 16, 2023 09:45 AM Reporting Lab: [facility] [address] [facility] [address] Performing Lab: [facility] [address] [facility] [address] [facility] Encounters Combined list of: 1) Encounters from Department of Veterans Affairs facilities going backup to the last 18 months, not all [place] inpatient encounters are included; 2) Encounters from the Department of Defense facilities going backup to 280 months. Location Location Details Encounter Type Encounter Number Reason For Visit Attending Provider ADM Date DC Date Status Disposition Source [facility] Outpatient Encounter [id number] 04/25 [facility] Social History Combined list of available smoking, tobacco, and other social history from Department of Defense and Veterans Affairs facilities. Social History Type Response Date Comment Sourc e Tobacco smoking status NHIS VA-TOBACCO FORMER USER 02/16/2023 [facility] History of tobacco use VA-TOBACCO QUIT 1 5 YRS OR MORE 02/16/2023 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
--- OUTSIDE RECORDS SUMMARY | 2024-12-02 10:00 | XMS_ITS | Patient Health Record ---
Author Organization [facility] Address [address] [place], [place] [id number] Care Team Providers Care Starchmaker Name Role Phone BOZENA ABARCA Unavailable [phone] Jude Connor Unavailable Unavailable Reason For Referral No Information Plan Of Treatment No Information Insurance Providers Payer Name Payer Address Payer Phone Subscriber Number Group Number Insured Name Patient Relationship to Insured Coverage Start Date Coverage End Date Medicare Part [place] [address] [place] [phone] [id number] ARIANNE COTO Self - patient is the insured
--- NOTE | 2024-12-02 10:01 | ECG_ITS ---
Test Date: 2024-12-02 10:09:36 Measurements Intervals [place] Rate: 96 P: 33 WV: 143 QRS: -21 QRSD: 106 T: 61 QT: 334 QTc: 422 Interpretive Statements SINUS RHYTHM BORDERLINE LEFT AXIS DEVIATION [QRS AXIS < -20] INCOMPLETE RIGHT BUNDLE BRANCH BLOCK LOW-VOLTAGE QRS BORDERLINE ECG No previous ECG available for comparison Electronically Signed On 12-02-2024 10:24:39 CDT by Cheo Buckley M.D.
--- NOTE | 2024-12-02 10:09 | PC.NURSE ---
EKG completed and read by MD Sage.
[2024-12-02 10:12] LABS: Add Urine Microscopic? YES; Appearance Urine Sl Cloudy (Clear); Glucose Urine UA Negative (Negative); Leukocyte Esterase Ur 2+ LEU/UL (Negative); Nitrate Urine Positive (Negative); Specific Grav Ur 1.015 (1.010-1.020)
--- NOTE | 2024-12-02 10:15 | PC.NURSE ---
Phlebotomy at bedside for patient blood draw.
[2024-12-02 10:21] LABS: Hematocrit 44.8 % (37.0-46.0); Hemoglobin 15.0 g/dL (12.4-15.3); Immature Granulocyte Percent A 0.6 % (0.0-0.0); Lymphocytes Absolute Auto 1.97 K/mm3 (1.10-4.50); Mean Corpuscular HGB Conc 33.5 g/dL (32-36); Mean Corpuscular Hemoglobin 34.3 pg (27.0-31.0); Mean Corpuscular Volume 102.5 fL (78.0-102.0); Nucleated Red Blood Cells Absolute Auto 0.00 K/mm3 (0.00-0.00); Nucleated Red Blood Cells Perc 0.0 % (0-0.0); Platelet Count Result 212 K/mm3 (150-420); Red Blood Count 4.37 M/mm3 (4.70-6.10); White Blood Count 19.4 K/mm3 (4.8-10.8)
--- NOTE | 2024-12-02 10:26 | PC.NURSE ---
Pt to CT scanner with radiology transport.
[2024-12-02 10:36] LABS: INR 1.1; Partial Thromboplastin Time 27.6 Sec (23.9-30.70); Prothrombin Time 11.6 Seconds (9.50-12.1)
[2024-12-02 10:37] LABS: Alanine Aminotransferase 147 U/L (6-50); Albumin Level 4.0 g/dL (3.5-5.1); Alkaline Phosphatase 75 U/L (38-126); Anion Gap 5 mmol/L (4-12); Bilirubin,Total 2.3 mg/dL (0.2-1.3); Blood Urea Nitrogen 24 mg/dL (9-20); Calcium 8.7 mg/dL (8.4-10.2); Carbon Dioxide 27 mmol/L (22-30); Chloride 105 mmol/L (98-107); Estimated Glomerular Filt Rate 35; Glucose 110 mg/dL (65-110); Osmolality Calculated 289 mOsm/kg (285-295); Potassium 4.2 mmol/L (3.4-5.0); Sodium 137 mmol/L (137-145); Total Protein 7.7 g/dL (6.3-8.2)
--- OUTSIDE RECORDS SUMMARY | 2024-12-02 10:37 | XMS_ITS | Continuity of Care Document ---
Author Name [facility] Organization [facility] Care Team Providers Care Screening Technician Name Role Phone [facility] Unavailable Unavailable Problems Combined list of problems from Department of Defense and Veterans Affairs facilities. It does not include entries that were removed or entered in error. Problem Status Onset Date Problem Type Date of Resolution Comments Source Hyperlipidemia Active Condition [facility] Impaired Fasting Glucose (SCT [id number]) Active Condition [facility] Nightmare Active Condition [facility] Immunizations Combined list of available immunizations from the Department of Defense and Veterans Affairs facilities. Immunization Series Date Given Administered By Site Reaction Lot Number CVX Code Drug Distribution Associate Status Comments Source COVID-19 (MODERNA), MRNA, LNP-S, PF, 100 MCG/0.5ML DOSE OR 50 MCG/0.25ML DOSE 3 2020 207 complet ed HISTORICA L INFORMATI ON - FROM OTHER REGISTRY, [facility] COVID-19 (MODERNA), MRNA, LNP-S, PF, 100 MCG/0.5ML DOSE OR 50 MCG/0.25ML DOSE 2 2020 207 complet ed HISTORICA L INFORMATI ON - FROM OTHER REGISTRY, [facility] COVID-19 (MODERNA), MRNA, LNP-S, PF, 100 MCG/0.5ML DOSE OR 50 MCG/0.25ML DOSE 1 2020 207 complet ed HISTORICA L INFORMATI ON - FROM OTHER REGISTRY, [facility] INFLUENZA, INJECTABLE, QUADRIVALENT 2018 158 complet ed 02, Partner: [facility]. Administe red by: [facility] Clinician (NPI=Not Provided) . Partner 91 Lot#: [id number] Mfr: [facility] INFLUENZA, INJECTABLE, QUADRIVALENT, PRESERVATIVE FREE 2017 150 complet ed 02, Partner: [facility]. [facility] red [facility] (NPI=Not Provided) . Partner 91 Lot#: [id number] Mfr: Kublaxapril Johnson [facility] INFLUENZA, INJECTABLE, QUADRIVALENT, PRESERVATIVE FREE 1 2017 150 complet ed HISTORICA L INFORMATI ON - FROM OTHER REGISTRY, [facility] INFLUENZA (HISTORICAL) 2003 88 complet ed [facility] TD(ADULT) UNSPECIFIED FORMULATION 1993 139 complet ed MAY BE OVERDUE [facility] Results Combined list of recent chemistry, hematology [...] Feb 16, 2023 09:30 AM Reporting Lab: [place] [phone] Performing Lab: [place] [phone] [facility] A1C % HEMOGLOBIN A1C/HEMOGL OBIN.TOTAL IN BLOOD [...] Feb 16, 2023 09:45 AM Reporting Lab: [address] [address] Performing Lab: [place] [phone] [facility] CBC W/DIFF LEUKOCYTES [#/VOLUME] IN BLOOD BY AUTOMATED COUNT 8.7 10*3/uL 4.0 - 11.0 02/16 Specimen Type: BLOOD No comment entered. Ordering Provider: AMELIA GONZALEZ Report Released Date/Time: Feb 16, 2023 09:45 AM Reporting Lab: [address] [address] Performing Lab: [address] [address] [facility] CBC W/DIFF ERYTHROCYT ES [#/VOLUME] IN BLOOD BY AUTOMATED COUNT 4.57 10*6/uL 4.20 - 5.70 02/16 Specimen Type: BLOOD No comment entered. Ordering Provider: AMELIA GONZALEZ Report Released Date/Time: Feb 16, 2023 09:45 AM Reporting Lab: [address] [address] Performing Lab: [address] [address] [facility] CBC W/DIFF HEMOGLOBIN [MASS/VOLU ME] IN BLOOD 15.9 g/dL 13.0 - 17.0 02/16 Specimen Type: BLOOD No comment entered. Ordering Provider: AMELIA GONZALEZ Report Released Date/Time: Feb 16, 2023 09:45 AM Reporting Lab: [address] [address] Performing Lab: [address] [address] [facility] CBC W/DIFF HEMATOCRIT [VOLUME FRACTION] OF BLOOD BY AUTOMATED COUNT 47.6 40.0 - 51.0 02/16 Specimen Type: BLOOD No comment entered. Ordering Provider: AMELIA GONZALEZ Report Released Date/Time: Feb 16, 2023 09:45 AM Reporting Lab: [address] [address] Performing Lab: [address] [address] [facility] CBC W/DIFF MCV [ENTITIC VOLUME] BY AUTOMATED COUNT 104.2 fL 82 - 99 02/16 H Specimen Type: BLOOD No comment entered. Ordering Provider: AMELIA GONZALEZ Report Released Date/Time: Feb 16, 2023 09:45 AM Reporting Lab: [address] [address] Performing Lab: [facility] [address] [facility] [address] [facility] CBC W/DIFF MCHC [MASS/VOLU ME] BY AUTOMATED COUNT 34.8 pg 27 - 34 02/16 H Specimen Type: BLOOD No comment entered. Ordering Provider: AMELIA GONZALEZ Report Released Date/Time: Feb 16, 2023 09:45 AM Reporting Lab: [facility] [address] [place] [phone] Performing Lab: [facility] [address] [place] [phone] [facility] CBC W/DIFF MCHC [MASS/VOLU ME] BY AUTOMATED COUNT 33.4 g/dL 31 - 37 02/16 Specimen Type: BLOOD No comment entered. Ordering Provider: AMELIA GONZALEZ Report Released Date/Time: Feb 16, 2023 09:45 AM Reporting Lab: [address] [address] Performing Lab: [address] [address] [facility] CBC W/DIFF PLATELET MEAN VOLUME [ENTITIC VOLUME] IN BLOOD BY AUTOMATED COUNT 10.3 fL 8 - 12 02/16 Specimen Type: BLOOD No comment entered. Ordering Provider: AMELIA GONZALEZ Report Released Date/Time: Feb 16, 2023 09:45 AM Reporting Lab: [address] [address] Performing Lab: [address] [address] [facility] CBC W/DIFF PLATELETS [#/VOLUME] IN BLOOD BY AUTOMATED COUNT 265 10*3/uL 130 - 400 02/16 Specimen Type: BLOOD No comment entered. Ordering Provider: AMELIA GONZALEZ Report Released Date/Time: Feb 16, 2023 09:45 AM Reporting Lab: [address] [address] Performing Lab: [address] [address] [facility] CBC W/DIFF ERYTHROCYT E DISTRIBUTI ON WIDTH [RATIO] BY AUTOMATED COUNT 13.4 < 15.0 - 15.0 02/16 Specimen Type: BLOOD No comment entered. Ordering Provider: AMELIA GONZALEZ Report Released Date/Time: Feb 16, 2023 09:45 AM Reporting Lab: [facility] [address] [facility] [address] Performing Lab: [facility] [address] [facility] [address] [facility] CBC W/DIFF NEUTROPHIL S/100 LEUKOCYTES IN BLOOD BY AUTOMATED COUNT 62.8 02/16 Specimen Type: BLOOD No comment entered. Ordering Provider: AMELIA GONZALEZ Report Released Date/Time: Feb 16, 2023 09:45 AM Reporting Lab: [facility] [address] [facility] [address] Performing Lab: [facility] [address] [facility] [address] [facility] CBC W/DIFF LYMPHOCYTE S/100 LEUKOCYTES IN BLOOD BY AUTOMATED COUNT 26.1 02/16 Specimen Type: BLOOD No comment entered. Ordering Provider: AMELIA GONZALEZ Report Released Date/Time: Feb 16, 2023 09:45 AM Reporting Lab: [facility] [address] [facility] [address] Performing Lab: [facility] [address] [facility] [address] [facility] CBC W/DIFF MONOCYTES/ 100 LEUKOCYTES IN BLOOD BY AUTOMATED COUNT 9.1 02/16 Specimen Type: BLOOD No comment entered. Ordering Provider: AMELIA GONZALEZ Report Released Date/Time: Feb 16, 2023 09:45 AM Reporting Lab: [facility] [address] [facility] [address] Performing Lab: [facility] [address] [facility] [address] [facility] CBC W/DIFF EOSINOPHIL S/100 LEUKOCYTES IN BLOOD BY AUTOMATED COUNT 0.8 02/16 Specimen Type: BLOOD No comment entered. Ordering Provider: AMELIA GONZALEZ Report Released Date/Time: Feb 16, 2023 09:45 AM Reporting Lab: [facility] [address] [facility] [address] Performing Lab: [facility] [address] [facility] [address] [facility] CBC W/DIFF BASOPHILS/ 100 LEUKOCYTES IN BLOOD BY AUTOMATED COUNT 1.0 02/16 Specimen Type: BLOOD No comment entered. Ordering Provider: AMELIA GONZALEZ Report Released Date/Time: Feb 16, 2023 09:45 AM Reporting Lab: [facility] [address] [facility] [address] Performing Lab: [facility] [address] [facility] [address] [facility] CBC W/DIFF IMMATURE GRANULOCYT ES/100 LEUKOCYTES IN BLOOD 0.2 02/16 Specimen Type: BLOOD No comment entered. Ordering Provider: AMELIA GONZALEZ Report Released Date/Time: Feb 16, 2023 09:45 AM Reporting Lab: [facility] [address] [place] [phone] Performing Lab: [facility] [address] [place] [phone] [facility] CBC W/DIFF NEUTROPHIL S [#/VOLUME] IN BLOOD BY AUTOMATED COUNT 5.5 10*3/uL 1.5 - 8.0 02/16 Specimen Type: BLOOD No comment entered. Ordering Provider: AMELIA GONZALEZ Report Released Date/Time: Feb 16, 2023 09:45 AM Reporting Lab: [facility] [address] [place] [address] Performing Lab: [facility] [address] [place] [address] [facility] CBC W/DIFF LYMPHOCYTE S [#/VOLUME] IN BLOOD BY AUTOMATED COUNT 2.3 10*3/uL 1.0 - 4.0 02/16 Specimen Type: BLOOD No comment entered. Ordering Provider: AMELIA GONZALEZ Report Released Date/Time: Feb 16, 2023 09:45 AM Reporting Lab: [facility] [address] [place] [phone] Performing Lab: [facility] [address] [place] [phone] [facility] CBC W/DIFF MONOCYTES [#/VOLUME] IN BLOOD BY AUTOMATED COUNT 0.8 10*3/uL 0.2 - 1.0 02/16 Specimen Type: BLOOD No comment entered. Ordering Provider: AMELIA GONZALEZ Report Released Date/Time: Feb 16, 2023 09:45 AM Reporting Lab: [place] [id number] [facility] [address] Performing Lab: [facility] [address] [facility] [address] [facility] CBC W/DIFF EOSINOPHIL S [#/VOLUME] IN BLOOD BY AUTOMATED COUNT 0.1 10*3/uL 0 - 0.4 02/16 Specimen Type: BLOOD No comment entered. Ordering Provider: AMELIA GONZALEZ Report Released Date/Time: Feb 16, 2023 09:45 AM Reporting Lab: [facility] [address] [place] [phone] Performing Lab: [facility] [address] [facility] [address] [facility] CBC W/DIFF BASOPHILS [#/VOLUME] IN BLOOD BY AUTOMATED COUNT 0.1 10*3/uL 0 - 0.2 02/16 Specimen Type: BLOOD No comment entered. Ordering Provider: AMELIA GONZALEZ Report Released Date/Time: Feb 16, 2023 09:45 AM Reporting Lab: [address] [address] Performing Lab: [address] [address] [facility] CBC W/DIFF IMMATURE GRANULOCYT ES/100 LEUKOCYTES IN BLOOD <0.110*3 /uL 0 - 0.5 02/16 Specimen Type: BLOOD No comment entered. Ordering Provider: AMELIA GONZALEZ Report Released Date/Time: Feb 16, 2023 09:45 AM Reporting Lab: [facility] [address] [place] [address] Performing Lab: [facility] [address] [place] [phone] [facility] CBC W/DIFF NUCLEATED ERYTHROCYT ES/100 ERYTHROCYT ES IN BLOOD 0.0 /100{WBC s} 0 - 0.2 02/16 Specimen Type: BLOOD No comment entered. Ordering Provider: AMELIA GONZALEZ Report Released Date/Time: Feb 16, 2023 09:45 AM Reporting Lab: [facility] [address] [place] [phone] Performing Lab: [facility] [address] [place] [address] [facility] CBC W/DIFF NUCLEATED ERYTHROCYT ES [#/VOLUME] IN BLOOD <0.0110* 3/uL 0 - 0.012 02/16 Specimen Type: BLOOD No comment entered. Ordering Provider: AMELIA GONZALEZ Report Released Date/Time: Feb 16, 2023 09:45 AM Reporting Lab: [address] [address] Performing Lab: [address] [address] [facility] COMPREHE NSIVE PNL ANION GAP IN SERUM OR PLASMA 14 mmol/L 10 - 02/16 Specimen Type: PLASMA Comment: [...] Feb 16, 2023 09:45 AM Reporting Lab: [address] [address] Performing Lab: [address] [address] [facility] COMPREH NSIVE PNL GLOMERULAR FILTRATION RATE/1.73 SQ [...] Feb 16, 2023 09:45 AM Reporting Lab: [address] [address] Performing Lab: [address] [address] [facility] COMPREHE NSIVE PNL GLUCOSE [MASS/VOLU ME] IN [...] Feb 16, 2023 09:45 AM Reporting Lab: [address] [address] Performing Lab: [address] [address] [facility] COMPREHE NSIVE PNL POTASSIUM [MOLES/VOL UME] IN [...] Feb 16, 2023 09:45 AM Reporting Lab: [address] [address] Performing Lab: [address] [address] [facility] COMPREHE NSIVE PNL SODIUM [MOLES/VOL UME] IN [...] Feb 16, 2023 09:45 AM Reporting Lab: [address] [address] Performing Lab: [address] [address] [facility] COMPREHE NSIVE PNL BILIRUBIN. TOTAL [MASS/VOLU ME] [...] Feb 16, 2023 09:45 AM Reporting Lab: [address] [address] Performing Lab: [address] [address] [facility] COMPREHE NSIVE PNL PROTEIN [MASS/VOLU ME] IN [...] Feb 16, 2023 09:45 AM Reporting Lab: [address] [address] Performing Lab: [address] [address] [facility] COMPREHE NSIVE PNL ALBUMIN [MASS/VOLU ME] IN [...] Feb 16, 2023 09:45 AM Reporting Lab: [address] [address] Performing Lab: [address] [address] [facility] COMPREHE NSIVE PNL ALKALINE PHOSPHATAS E [ENZYMATIC [...] Feb 16, 2023 09:45 AM Reporting Lab: [address] [address] Performing Lab: [address] [address] [facility] COMPREHE NSIVE PNL ALANINE AMINOTRANS FERASE [ENZYMATIC [...] Feb 16, 2023 09:45 AM Reporting Lab: [address] [address] Performing Lab: [address] [address] [facility] COMPREHE NSIVE PNL ASPARTATE AMINOTRANS FERASE [ENZYMATIC [...] Feb 16, 2023 09:45 AM Reporting Lab: [address] [address] Performing Lab: [address] [address] [facility] COMPREHE NSIVE PNL UREA NITROGEN [MASS/VOLU ME] [...] Feb 16, 2023 09:45 AM Reporting Lab: [address] [address] Performing Lab: [address] [address] [facility] COMPREHE NSIVE PNL CALCIUM, TOTAL 9.4 mg/dL [...] Feb 16, 2023 09:45 AM Reporting Lab: [address] [address] Performing Lab: [address] [address] [facility] COMPREHE NSIVE PNL CARBON DIOXIDE, TOTAL [MOLES/VOL [...] Feb 16, 2023 09:45 AM Reporting Lab: [address] [address] Performing Lab: [address] [address] [facility] COMPREHE NSIVE PNL CHLORIDE [MOLES/VOL UME] IN [...] Feb 16, 2023 09:45 AM Reporting Lab: [address] [address] Performing Lab: [address] [address] [facility] COMPREHE NSIVE PNL CREATININE [MASS/VOLU ME] IN [...] Feb 16, 2023 09:45 AM Reporting Lab: [address] [address] Performing Lab: [address] [address] [facility] LIPID PNL CHOLESTERO L IN HDL [MASS/VOLU [...] Feb 16, 2023 09:45 AM Reporting Lab: [address] [address] Performing Lab: [address] [address] [facility] LIPID PNL TRIGLYCERI DE [MASS/VOLU ME] IN [...] Feb 16, 2023 09:45 AM Reporting Lab: [address] [address] Performing Lab: [address] [address] [facility] LIPID PNL CHOLESTERO L IN LDL [MASS/VOLU ME] IN SERUM OR PLASMA BY DIRECT ASSAY [facility] 02/16 Specimen Type: PLASMA Comment: Low-risk levels [...] Feb 16, 2023 09:45 AM Reporting Lab: [address] [address] Performing Lab: [address] [address] [facility] LIPID PNL CHOLESTERO L [MASS/VOLU ME] IN [...] Feb 16, 2023 09:45 AM Reporting Lab: [address] [address] Performing Lab: [address] [address] [facility] LIPID PNL CHOLESTERO L IN LDL [MASS/VOLU [...] Feb 16, 2023 09:45 AM Reporting Lab: [address] [address] Performing Lab: [address] [address] [facility] PSA TOTAL EIA PROSTATE SPECIFIC AG [MASS/VOLU ME] IN SERUM OR PLASMA 0.83 ng/mL 0.00 - 4.00 02/16 Specimen Type: SERUM Comment: PSA was performed on the Siemens [employer] Immunoassay Analyzer. Ordering Provider: AMELIA GONZALEZ Report Released Date/Time: Feb 16, 2023 09:45 AM Reporting Lab: [address] [address] Performing Lab: [address] [address] [facility] THYROID CASCADE PANEL THYROTROPI N [UNITS/VOL UME] IN SERUM OR PLASMA 2.513 u[IU]/mL 0.550 - 4.780 02/16 Specimen Type: SERUM Comment: PSA was performed on the Siemens [employer] Immunoassay Analyzer. Ordering Provider: AMELIA GONZALEZ Report Released Date/Time: Feb 16, 2023 09:45 AM Reporting Lab: [facility] [address] [facility] [address] Performing Lab: [facility] [address] [facility] [address] [facility] Encounters Combined list of: 1) Encounters from Department of Veterans Affairs facilities going backup to the last 18 months, not all [place] inpatient encounters are included; 2) Encounters from the Department of Defense facilities going backup to 280 months. Location Location Details Encounter Type Encounter Number Reason For Visit Attending Provider ADM Date DC Date Status Disposition Source [facility] Outpatient Encounter [id number] 04/25 [facility] Social History Combined list of available smoking, tobacco, and other social history from Department of Defense and Veterans Affairs facilities. Social History Type Response Date Comment Sourc e Tobacco smoking status NHIS [facility]BACCO FORMER USER 02/16/2023 [facility] History of tobacco use VA-TOBACCO QUIT 1 5 YRS OR MORE 02/16/2023 [facility] History of tobacco use LIFETIME NON-TOBA [employer] USER 10/21/2003 [facility]
[2024-12-02 10:43] LABS: Aspartate Amino Transferase > 750 U/L (17-59)
[2024-12-02 10:48] LABS: NT Pro B Type Natriuretic Pept 575 pg/mL (19.9-100); Troponin I 0.013 ng/mL (0.000-0.034)
--- NOTE | 2024-12-02 10:50 | PC.NURSE ---
Pt back in room from CT scanner.
--- NOTE | 2024-12-02 10:55 | PC.NURSE ---
Pt returns from Ct scanner. SPO2 at 89% on RA. MD Sage notified. Pt placed on 2L NC.
--- NOTE | 2024-12-02 10:57 | PC.NURSE ---
Phlebotomy at bedside to draw lab cultures.
--- NOTE | 2024-12-02 11:10 | PC.NURSE ---
Pt to CT scanner with radiology transport. MD Sage notified on delay in antibiotic administration.
--- NOTE | 2024-12-02 11:37 | PC.NURSE ---
Pt back in room from CT scanner.
[2024-12-02] MEDS: PIPERACILLIN/TAZOBACTAM SOD 3.375 GM in SODIUM CHLORIDE 0.9% IV 50 ML 100 ML IVPB (11:43)
[2024-12-02] MEDS: SODIUM CHLORIDE 0.9% IV 1,000 ML 999 ML IV CONT ×3 (11:45→12:29)
[2024-12-02 11:55] LABS: Creatine Kinase > 16000 U/L (55-170)
--- NOTE | 2024-12-02 12:31 | PC.NURSE ---
[employer] at bedside assisting pt with personal hygiene after incontinent episode.
--- NOTE | 2024-12-02 12:32 | PC.NURSE ---
Phlebotomy at bedside for new order set.
[2024-12-02 13:10] LABS: Troponin I < 0.012 ng/mL (0.000-0.034)
--- NOTE | 2024-12-02 13:58 | PC.NURSE ---
Doctor at bedside per patient request.
--- NOTE | 2024-12-04 13:05 | PC.NURSE ---
preliminary urine culture reviewed. >100,000 proteus mirabilis/penneri forming
--- NOTE | 2024-12-04 13:07 | PC.NURSE ---
preliminary blood cultures x2 reviewed. no growth to date
--- NOTE | 2024-12-05 12:51 | PC.NURSE ---
final blood cultures x2 reviewed. no growth in 5 days. no change in plan of care
--- NOTE | 2024-12-06 12:21 | PC.NURSE ---
Preliminary blood culture report; no growth in 48 hours.
--- NOTE | 2024-12-06 12:23 | PC.NURSE ---
Patient transfered to [facility] Room 241. UA culture report faxed to [phone]
--- NOTE | 2024-12-08 15:48 | PC.NURSE ---
final blood culture results x2: no growth after 5 days
--- NOTE | 2024-12-09 12:47 | PC.NURSE ---
final blood cultures x2 reviewed. no growth after 5 days
== END 2024-12-02 14:52 | disposition short-term general hospital (02) ==
PROVIDERS: Emergency Provider Emergency Medicine; PCP Internal Medicine
DX: A41.89 Other specified sepsis (principal); N39.0 Urinary tract infection, site not specified; R74.01 Elevation of levels of liver transaminase levels; N17.9 Acute kidney failure, unspecified; R09.02 Hypoxemia; T79.6XXA Traumatic ischemia of muscle, initial encounter; W18.30XA Fall on same level, unspecified, initial encounter
CPT/HCPCS: 36415; 70450; 71046; 71275; 72125; 73080; 80053; 81001; 82550; 83605; 83880; 84484; 85025; 85380; 85610; 85730; 93005; 96361; 96365; 99285; J2543; J7030; Q9967

== ENCOUNTER 2024-12-02 17:17 | Inpatient (IN) | payer MEDICARE, MEDICAID, SELFPAY ==
--- NOTE | 2024-12-02 15:20 | ADMGEN ---
This patient, Quique Wallis, was admitted to Medical Room 241-01. Patient/family oriented to hospital policies and general routines including ID bracelet, bed and alarms, visiting hours, pain management, procedures, bathroom and other care routines, personal items, smoking policy, room service/diet, and visiting hours. Information on how to activate the Rapid Response Team has been discussed. Patient/Family are encouraged to report perceived risks to care and to ask questions if they do not understand what they are told or what they should do.
--- OUTSIDE RECORDS SUMMARY | 2024-12-02 15:27 | XMS_ITS | Continuity of Care Document ---
Author Name [facility] Organization [facility] Care Team Providers Care Research Worker Kitchen Name Role Phone [facility] Unavailable Unavailable Problems Combined list of problems from Department of Defense and Veterans Affairs facilities. It does not include entries that were removed or entered in error. Problem Status Onset Date Problem Type Date of Resolution Comments Source Hyperlipidemia Active Condition [facility] Impaired Fasting Glucose (SCT [id number]) Active Condition [facility] Nightmare Active Condition [facility] Immunizations Combined list of available immunizations from the Department of Defense and Veterans Affairs facilities. Immunization Series Date Given Administered By Site Reaction Lot Number CVX Code Drug Coach Driver Status Comments Source COVID-19 (MODERNA), MRNA, LNP-S, PF, 100 MCG/0.5ML DOSE OR 50 MCG/0.25ML DOSE 3 2020 207 complet ed HISTORICA L INFORMATI ON - FROM OTHER REGISTRY, [facility] COVID-19 (MODERNA), MRNA, LNP-S, PF, 100 MCG/0.5ML DOSE OR 50 MCG/0.25ML DOSE 2 2020 207 complet ed HISTORICA L INFORMATI ON - FROM OTHER REGISTRY, [facility] COVID-19 (MODERNA), MRNA, LNP-S, PF, 100 MCG/0.5ML DOSE OR 50 MCG/0.25ML DOSE 1 2020 207 complet ed HISTORICA L INFORMATI ON - FROM OTHER REGISTRY, [facility] INFLUENZA, INJECTABLE, QUADRIVALENT 2018 158 complet ed 02, Partner: [facility]. Administe red by: [facility] Clinician (NPI=Not Provided) . Partner 91 Lot#: [id number] Mfr: [facility] INFLUENZA, INJECTABLE, QUADRIVALENT, PRESERVATIVE FREE 2017 150 complet ed 02, Partner: [facility]. [facility] red [email or web address] (NPI=Not Provided) . Partner 91 Lot#: [id number] Mfr: [employer] [facility] INFLUENZA, INJECTABLE, QUADRIVALENT, PRESERVATIVE FREE 1 2017 150 complet ed HISTORICA L INFORMATI ON - FROM OTHER REGISTRY, [facility] INFLUENZA (HISTORICAL) 2003 88 complet ed [facility] TD(ADULT) UNSPECIFIED FORMULATION 1993 139 complet ed MAY BE OVERDUE [facility] Results Combined list of recent chemistry, [...] Feb 16, 2023 09:30 AM Reporting Lab: [place] [id number] Performing Lab: [place] [address] [facility] A1C % HEMOGLOBIN A1C/HEMOGL OBIN.TOTAL IN [...] Feb 16, 2023 09:45 AM Reporting Lab: [address] [address] Performing Lab: [place] [phone] [facility] CBC W/DIFF LEUKOCYTES [#/VOLUME] IN BLOOD BY AUTOMATED COUNT 8.7 10*3/uL 4.0 - 11.0 02/16 Specimen Type: BLOOD No comment entered. Ordering Provider: AMELIA GONZALEZ Report Released Date/Time: Feb 16, 2023 09:45 AM Reporting Lab: [address] [address] Performing Lab: [address] [address] [facility] CBC W/DIFF ERYTHROCYT ES [#/VOLUME] IN BLOOD BY AUTOMATED COUNT 4.57 10*6/uL 4.20 - 5.70 02/16 Specimen Type: BLOOD No comment entered. Ordering Provider: AMELIA GONZALEZ Report Released Date/Time: Feb 16, 2023 09:45 AM Reporting Lab: [address] [address] Performing Lab: [address] [address] [facility] CBC W/DIFF HEMOGLOBIN [MASS/VOLU ME] IN BLOOD 15.9 g/dL 13.0 - 17.0 02/16 Specimen Type: BLOOD No comment entered. Ordering Provider: AMELIA GONZALEZ Report Released Date/Time: Feb 16, 2023 09:45 AM Reporting Lab: [address] [address] Performing Lab: [address] [address] [facility] CBC W/DIFF HEMATOCRIT [VOLUME FRACTION] OF BLOOD BY AUTOMATED COUNT 47.6 40.0 - 51.0 02/16 Specimen Type: BLOOD No comment entered. Ordering Provider: AMELIA GONZALEZ Report Released Date/Time: Feb 16, 2023 09:45 AM Reporting Lab: [address] [address] Performing Lab: [address] [address] [facility] CBC W/DIFF MCV [ENTITIC VOLUME] BY AUTOMATED COUNT 104.2 fL 82 - 99 02/16 H Specimen Type: BLOOD No comment entered. Ordering Provider: AMELIA GONZALEZ Report Released Date/Time: Feb 16, 2023 09:45 AM Reporting Lab: [address] [address] Performing Lab: [facility] [address] [facility] [address] [facility] CBC W/DIFF MCHC [MASS/VOLU ME] BY AUTOMATED COUNT 34.8 pg 27 - 34 02/16 H Specimen Type: BLOOD No comment entered. Ordering Provider: AMELIA GONZALEZ Report Released Date/Time: Feb 16, 2023 09:45 AM Reporting Lab: [facility] [address] [place] [address] Performing Lab: [facility] [address] [place] [address] [facility] CBC W/DIFF MCHC [MASS/VOLU ME] BY AUTOMATED COUNT 33.4 g/dL 31 - 37 02/16 Specimen Type: BLOOD No comment entered. Ordering Provider: AMELIA GONZALEZ Report Released Date/Time: Feb 16, 2023 09:45 AM Reporting Lab: [address] [address] Performing Lab: [address] [address] [facility] CBC W/DIFF PLATELET MEAN VOLUME [ENTITIC VOLUME] IN BLOOD BY AUTOMATED COUNT 10.3 fL 8 - 12 02/16 Specimen Type: BLOOD No comment entered. Ordering Provider: AMELIA GONZALEZ Report Released Date/Time: Feb 16, 2023 09:45 AM Reporting Lab: [address] [address] Performing Lab: [address] [address] [facility] CBC W/DIFF PLATELETS [#/VOLUME] IN BLOOD BY AUTOMATED COUNT 265 10*3/uL 130 - 400 02/16 Specimen Type: BLOOD No comment entered. Ordering Provider: AMELIA GONZALEZ Report Released Date/Time: Feb 16, 2023 09:45 AM Reporting Lab: [address] [address] Performing Lab: [address] [address] [facility] CBC W/DIFF ERYTHROCYT E DISTRIBUTI ON WIDTH [RATIO] BY AUTOMATED COUNT 13.4 < 15.0 - 15.0 02/16 Specimen Type: BLOOD No comment entered. Ordering Provider: AMELIA GONZALEZ Report Released Date/Time: Feb 16, 2023 09:45 AM Reporting Lab: [facility] [address] [facility] [address] Performing Lab: [facility] [address] [facility] [address] [facility] CBC W/DIFF NEUTROPHIL S/100 LEUKOCYTES IN BLOOD BY AUTOMATED COUNT 62.8 02/16 Specimen Type: BLOOD No comment entered. Ordering Provider: AMELIA GONZALEZ Report Released Date/Time: Feb 16, 2023 09:45 AM Reporting Lab: [facility] [address] [facility] [address] Performing Lab: [facility] [address] [facility] [address] [facility] CBC W/DIFF LYMPHOCYTE S/100 LEUKOCYTES IN BLOOD BY AUTOMATED COUNT 26.1 02/16 Specimen Type: BLOOD No comment entered. Ordering Provider: AMELIA GONZALEZ Report Released Date/Time: Feb 16, 2023 09:45 AM Reporting Lab: [facility] [address] [facility] [address] Performing Lab: [facility] [address] [facility] [address] [facility] CBC W/DIFF MONOCYTES/ 100 LEUKOCYTES IN BLOOD BY AUTOMATED COUNT 9.1 02/16 Specimen Type: BLOOD No comment entered. Ordering Provider: AMELIA GONZALEZ Report Released Date/Time: Feb 16, 2023 09:45 AM Reporting Lab: [facility] [address] [facility] [address] Performing Lab: [facility] [address] [facility] [address] [facility] CBC W/DIFF EOSINOPHIL S/100 LEUKOCYTES IN BLOOD BY AUTOMATED COUNT 0.8 02/16 Specimen Type: BLOOD No comment entered. Ordering Provider: AMELIA GONZALEZ Report Released Date/Time: Feb 16, 2023 09:45 AM Reporting Lab: [facility] [address] [facility] [address] Performing Lab: [facility] [address] [facility] [address] [facility] CBC W/DIFF BASOPHILS/ 100 LEUKOCYTES IN BLOOD BY AUTOMATED COUNT 1.0 02/16 Specimen Type: BLOOD No comment entered. Ordering Provider: AMELIA GONZALEZ Report Released Date/Time: Feb 16, 2023 09:45 AM Reporting Lab: [facility] [address] [facility] [address] Performing Lab: [facility] [address] [facility] [address] [facility] CBC W/DIFF IMMATURE GRANULOCYT ES/100 LEUKOCYTES IN BLOOD 0.2 02/16 Specimen Type: BLOOD No comment entered. Ordering Provider: AMELIA GONZALEZ Report Released Date/Time: Feb 16, 2023 09:45 AM Reporting Lab: [facility] [address] [place] [address] Performing Lab: [facility] [address] [place] [address] [facility] CBC W/DIFF NEUTROPHIL S [#/VOLUME] IN BLOOD BY AUTOMATED COUNT 5.5 10*3/uL 1.5 - 8.0 02/16 Specimen Type: BLOOD No comment entered. Ordering Provider: AMELIA GONZALEZ Report Released Date/Time: Feb 16, 2023 09:45 AM Reporting Lab: [facility] [address] [place] [address] Performing Lab: [facility] [address] [place] [address] [facility] CBC W/DIFF LYMPHOCYTE S [#/VOLUME] IN BLOOD BY AUTOMATED COUNT 2.3 10*3/uL 1.0 - 4.0 02/16 Specimen Type: BLOOD No comment entered. Ordering Provider: AMELIA GONZALEZ Report Released Date/Time: Feb 16, 2023 09:45 AM Reporting Lab: [facility] [address] [place] [address] Performing Lab: [facility] [address] [place] [address] [facility] CBC W/DIFF MONOCYTES [#/VOLUME] IN BLOOD BY AUTOMATED COUNT 0.8 10*3/uL 0.2 - 1.0 02/16 Specimen Type: BLOOD No comment entered. Ordering Provider: AMELIA GONZALEZ Report Released Date/Time: Feb 16, 2023 09:45 AM Reporting Lab: [place] [id number] [facility] [address] Performing Lab: [facility] [address] [facility] [address] [facility] CBC W/DIFF EOSINOPHIL S [#/VOLUME] IN BLOOD BY AUTOMATED COUNT 0.1 10*3/uL 0 - 0.4 02/16 Specimen Type: BLOOD No comment entered. Ordering Provider: AMELIA GONZALEZ Report Released Date/Time: Feb 16, 2023 09:45 AM Reporting Lab: [facility] [address] [place] [address] Performing Lab: [facility] [address] [facility] [address] [facility] CBC W/DIFF BASOPHILS [#/VOLUME] IN BLOOD BY AUTOMATED COUNT 0.1 10*3/uL 0 - 0.2 02/16 Specimen Type: BLOOD No comment entered. Ordering Provider: AMELIA GONZALEZ Report Released Date/Time: Feb 16, 2023 09:45 AM Reporting Lab: [address] [address] Performing Lab: [address] [address] [facility] CBC W/DIFF IMMATURE GRANULOCYT ES/100 LEUKOCYTES IN BLOOD <0.110*3 /uL 0 - 0.5 02/16 Specimen Type: BLOOD No comment entered. Ordering Provider: AMELIA GONZALEZ Report Released Date/Time: Feb 16, 2023 09:45 AM Reporting Lab: [facility] [address] [place] [address] Performing Lab: [facility] [address] [place] [address] [facility] CBC W/DIFF NUCLEATED ERYTHROCYT ES/100 ERYTHROCYT ES IN BLOOD 0.0 /100{WBC s} 0 - 0.2 02/16 Specimen Type: BLOOD No comment entered. Ordering Provider: AMELIA GONZALEZ Report Released Date/Time: Feb 16, 2023 09:45 AM Reporting Lab: [facility] [address] [place] [address] Performing Lab: [facility] [address] [place] [address] [facility] CBC W/DIFF NUCLEATED ERYTHROCYT ES [#/VOLUME] IN BLOOD <0.0110* 3/uL 0 - 0.012 02/16 Specimen Type: BLOOD No comment entered. Ordering Provider: AMELIA GONZALEZ Report Released Date/Time: Feb 16, 2023 09:45 AM Reporting Lab: [address] [address] Performing Lab: [address] [address] [facility] COMPREHE NSIVE PNL ANION GAP IN [...] Feb 16, 2023 09:45 AM Reporting Lab: [address] [address] Performing Lab: [address] [address] [facility] COMPREH NSIVE PNL GLOMERULAR FILTRATION RATE/1.73 [...] Feb 16, 2023 09:45 AM Reporting Lab: [address] [address] Performing Lab: [address] [address] [facility] COMPREHE NSIVE PNL GLUCOSE [MASS/VOLU ME] [...] Feb 16, 2023 09:45 AM Reporting Lab: [address] [address] Performing Lab: [address] [address] [facility] COMPREHE NSIVE PNL POTASSIUM [MOLES/VOL UME] [...] Feb 16, 2023 09:45 AM Reporting Lab: [address] [address] Performing Lab: [address] [address] [facility] COMPREHE NSIVE PNL SODIUM [MOLES/VOL UME] [...] Feb 16, 2023 09:45 AM Reporting Lab: [address] [address] Performing Lab: [address] [address] [facility] COMPREHE NSIVE PNL BILIRUBIN. TOTAL [MASS/VOLU [...] Feb 16, 2023 09:45 AM Reporting Lab: [address] [address] Performing Lab: [address] [address] [facility] COMPREHE NSIVE PNL PROTEIN [MASS/VOLU ME] [...] Feb 16, 2023 09:45 AM Reporting Lab: [address] [address] Performing Lab: [address] [address] [facility] COMPREHE NSIVE PNL ALBUMIN [MASS/VOLU ME] [...] Feb 16, 2023 09:45 AM Reporting Lab: [address] [address] Performing Lab: [address] [address] [facility] COMPREHE NSIVE PNL ALKALINE PHOSPHATAS E [...] Feb 16, 2023 09:45 AM Reporting Lab: [address] [address] Performing Lab: [address] [address] [facility] COMPREHE NSIVE PNL ALANINE AMINOTRANS FERASE [...] Feb 16, 2023 09:45 AM Reporting Lab: [address] [address] Performing Lab: [address] [address] [facility] COMPREHE NSIVE PNL ASPARTATE AMINOTRANS FERASE [...] Feb 16, 2023 09:45 AM Reporting Lab: [address] [address] Performing Lab: [address] [address] [facility] COMPREHE NSIVE PNL UREA NITROGEN [MASS/VOLU [...] Feb 16, 2023 09:45 AM Reporting Lab: [address] [address] Performing Lab: [address] [address] [facility] COMPREHE NSIVE PNL CALCIUM, TOTAL 9.4 [...] Feb 16, 2023 09:45 AM Reporting Lab: [address] [address] Performing Lab: [address] [address] [facility] COMPREHE NSIVE PNL CARBON DIOXIDE, TOTAL [...] Feb 16, 2023 09:45 AM Reporting Lab: [address] [address] Performing Lab: [address] [address] [facility] COMPREHE NSIVE PNL CHLORIDE [MOLES/VOL UME] [...] Feb 16, 2023 09:45 AM Reporting Lab: [address] [address] Performing Lab: [address] [address] [facility] COMPREHE NSIVE PNL CREATININE [MASS/VOLU ME] [...] Feb 16, 2023 09:45 AM Reporting Lab: [address] [address] Performing Lab: [address] [address] [facility] LIPID PNL CHOLESTERO L IN HDL [...] Feb 16, 2023 09:45 AM Reporting Lab: [address] [address] Performing Lab: [address] [address] [facility] LIPID PNL TRIGLYCERI DE [MASS/VOLU ME] [...] Feb 16, 2023 09:45 AM Reporting Lab: [address] [address] Performing Lab: [address] [address] [facility] LIPID PNL CHOLESTERO L IN LDL [MASS/VOLU ME] IN SERUM OR PLASMA BY DIRECT ASSAY [employer] 02/16 Specimen Type: PLASMA Comment: Low-risk levels [...] Feb 16, 2023 09:45 AM Reporting Lab: [address] [address] Performing Lab: [address] [address] [facility] LIPID PNL CHOLESTERO L [MASS/VOLU ME] [...] Feb 16, 2023 09:45 AM Reporting Lab: [address] [address] Performing Lab: [address] [address] [facility] LIPID PNL CHOLESTERO L IN LDL [...] Feb 16, 2023 09:45 AM Reporting Lab: [address] [address] Performing Lab: [address] [address] [facility] PSA TOTAL EIA PROSTATE SPECIFIC AG [MASS/VOLU ME] IN SERUM OR PLASMA 0.83 ng/mL 0.00 - 4.00 02/16 Specimen Type: SERUM Comment: PSA was performed on the Siemens [employer] Immunoassay Analyzer. Ordering Provider: AMELIA GONZALEZ Report Released Date/Time: Feb 16, 2023 09:45 AM Reporting Lab: [address] [address] Performing Lab: [address] [address] [facility] THYROID CASCADE PANEL THYROTROPI N [UNITS/VOL UME] IN SERUM OR PLASMA 2.513 u[IU]/mL 0.550 - 4.780 02/16 Specimen Type: SERUM Comment: PSA was performed on the Siemens [employer]ica Immunoassay Analyzer. Ordering Provider: AMEILA GONZALEZ Report Released Date/Time: Feb 16, 2023 09:45 AM Reporting Lab: [facility] [address] [facility] [address] Performing Lab: [facility] [address] [facility] [address] [facility] Encounters Combined list of: 1) Encounters from Department of Veterans Affairs facilities going backup to the last 18 months, not all [place] inpatient encounters are included; 2) Encounters from the Department of Defense facilities going backup to 280 months. Location Location Details Encounter Type Encounter Number Reason For Visit Attending Provider ADM Date DC Date Status Disposition Source [facility] Outpatient Encounter [id number] 04/25 [facility] Social History Combined list of available smoking, tobacco, and other social history from Department of Defense and Veterans Affairs facilities. Social History Type Response Date Comment Sourc e Tobacco smoking status NHIS VA-[facility]BACCO FORMER USER 02/16/2023 [facility] History of tobacco use VA-TOBACCO QUIT 1 5 YRS OR MORE 02/16/2023 [facility] History of tobacco use LIFETIME NON-[employer]BA [employer] USER 10/21/2003 [facility]
[2024-12-02 15:29] VITALS: BMI 44.4
[2024-12-02 15:32] VITALS: BP 180/85; PULSE 81; RESP 22; TEMP 37.3; O2SAT 99
[2024-12-02 15:56] VITALS: PULSE 86; RESP 20; O2SAT 99
[2024-12-02 16:05] VITALS: PULSE 86
--- NOTE | 2024-12-02 17:12 | P.HP_ITS ---
H&P: HPI History of Present Illness Date/Time: 12/02/24 17:12 Chief Complaint: Fall, Weakness Narrative: 74 y/o M with no significant known PMH presented with fall and weakness. The patient presented to [place] [facility] on 12/02 for further evaluation of fall and weakness. The patient reports he was walking to another part of his house when he had a fall, does not believe he passed out or lost consciousness. The patient was unable to get up for several hours, estimates 8 hrs, due to weakness. He was eventually able to get his arms underneath him and able to get himself lifted up. 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 Denies shortness of breath or shortness of breath with exertion, chest pain, palpitations, nausea, vomiting, diarrhea, constipation, focal weakness, focal numbness, abdominal pain, urinary frequency, fever, chills, or body aches. He does report possible dysuria. Patient is a poor historian at present. Initial VS at presentation: ?98.2? F, HR 91, RR 18, 131/89, and 94% on RA. ED workup showed: ?WBC 19.4, no anemia, normal coags, elevated D-dimer with a negative chest CTA, no significant electrolyte derangements, creatinine 1.89 and GFR 35 (1.07 and GFR >60 in 202), total bilirubin 2.3, AST greater than 750, ALT 147, CK greater than 16,000, BNP 575 (normal when adjusted for age), initial troponin 0.013, and UA suggestive of UTI.? Head CT showed no significant abnormality.? Elbow XR was unremarkable.? C-spine CT showed moderate to severe cervical spondylosis with chronic appearing mild anterior vertebral height loss at C5 and C6, no acute osseous abnormality.? CXR showed clear lungs.? Chest CTA showed no evidence of PE/aortic dissection/aortic aneurysm and clear lungs.? EKG showed sinus rhythm, rate 96, borderline left axis deviation, incomplete RBBB, low-voltage QRS. Review of Systems Review of Systems: All systems reviewed & are unremarkable except as noted in HPI and below [facility] Past Medical History Medical History Encounter for lipid screening for cardiovascular disease Obesity, Class III, BMI 40-49.9 (morbid obesity) Social History Social History Smoking status: Never smoker Alcohol intake: never Substance use: never Do You Feel Safe in your Home?: No Lack of Transportation: No Lack of Food: Never True Current Housing: I Have Housing Concerned About Future Housing: No Difficulty Paying Gas/Electric Bills: No Difficulty Paying for Meds: No Currently Unemployed: No Education: High School Diploma/GED Difficulty w/ Childcare or Family Care: No Living arrangements: alone Occupation/Education: retired Spiritual care concerns: No Meds Home Medications and Allergies Home Medications ?Medication ?Instructions ?Recorded ?Confirmed ?Type atorvastatin 40 mg tablet 40 mg PO DAILY #90 tabs 01/10/21 12/02/24 Rx Allergies Allergy/AdvReac Type Severity Reaction Status Date / Time No Known Allergies Allergy Verified 12/02/24 09:55 Vital Signs Vital Signs - 24 hr 12/02/24 15:32 12/02/24 15:56 Temperature 99.2 F Pulse Rate 81 86 Respiratory Rate 22 H 20 Blood Pressure 180/85 H Pulse Oximetry 99 99 Oxygen Delivery Nasal Cannula Oxygen Flow Rate 2 Exam Const: General: comfortable and no acute distress Other: , male, obese body habitus, ill-appearing HENMT: Face/Nose/Sinus: Normal nares present Mouth: Yes dry mucous membranes Eyes: General: appearance normal, both eyes and all related structures Sclera: sclerae normal Pupils: Equal, round and reactive pupils present EOM: EOMs intact bilaterally Resp: Effort & Inspection: normal respiratory effort Auscultation: clear to auscultation bilaterally Cardio: Rate: regular rate Rhythm: regular rhythm Other: Occasional ectopy, no appreciable murmur. GI: Other: Abdomen soft, nondistended, nontender. Normoactive bowel sounds in all quadrants. Skin: General skin exam: normal color and no rashes or lesions noted Wounds: no wounds Neuro: Speech: normal speech Sensory Exam: normal sensation Other: Generalized weakness, A&O x4 Extrem: General: normal to inspection Psych: Mental Status: mental status grossly normal Affect: normal affect Other: Fair insight and judgment Assessment and Plan Assessment and plan (1) Sepsis: Qualifiers: Acute renal failure type: unspecified Sepsis acute organ dysfunction status: with acute organ dysfunction Sepsis type: sepsis due to unspecified organism Severe sepsis acute organ dysfunction type: acute renal failure Severe sepsis shock status: without septic shock Qualified Code(s): A41.9 - Sepsis, unspecified organism; R65.20 - Severe sepsis without septic shock; N17.9 - Acute kidney failure, unspecified Code(s): A41.9 - Sepsis, unspecified organism Status: Acute Assessment and Plan: - meets SIRS criteria:? HR greater than 90, WBC greater than 12 - lactic acid 1.0- 30 mL/kg = 3.8L, given 3L in the ED - suspected source:? UTI - started on Zosyn on 12/02 - blood cultures drawn on 12/02, follow - CXR and chest CTA showed clear lungs - evidence of VALERIE and for possible shock liver, secondary to rhabdomyolysis versus septic shock.? - Monitor (2) UTI (urinary tract infection): Qualifiers: Urinary tract infection type: acute cystitis Hematuria presence: without hematuria Qualified Code(s): N30.00 - Acute cystitis without hematuria Code(s): N39.0 - Urinary tract infection, site not specified Status: Acute Assessment and Plan: - UA:? Cloudy, 3+ blood, 3+ blood, positive nitrates, 1+ bilirubin, 2+ leuks, 6- 10 RBC, 31-50 WBC, rare epithelial cells, 2+ bacteria - UC pending - no previous micro available for review - started on Zosyn on 12/02 in the ED, will exchange to ceftriaxone on 12/02 (3) Rhabdomyolysis: Qualifiers: Encounter type: initial encounter Rhabdomyolysis type: traumatic Qualified Code(s): T79.6XXA - Traumatic ischemia of muscle, initial encounter Code(s): M62.82 - Rhabdomyolysis Status: Acute Assessment and Plan: - CK >91552 - presumed secondary to prolonged time spend on floor after fall, estimated 8 hours - LFTs elevated and VALERIE noted based off lab work in 2020 - aggressive IV lfuids: 3L bolus -> 100 mL/hour - trend CK and renal function (4) VALERIE (acute kidney injury): Code(s): N17.9 - Acute kidney failure, unspecified Status: Acute Assessment and Plan: - creatinine or 1.89, BUN 24, and GFR 35 upon presentation.? Renal function within normal limits in 2020, no further data available. - presumed secondary to rhabdomyolysis, will start with aggressive IV fluids.? If no improvement consider further workup and nephrology consultation. - monitor I&Os (5) Transaminitis: Code(s): R74.01 - Elevation of levels of liver transaminase levels Status: Acute Assessment and Plan: - total bilirubin 2.3, AST greater than 750, ALT 147, alk-phos within normal limits - unclear if secondary to severe sepsis versus rhabdomyolysis.? Started on broad-spectrum antibiotics and aggressive IV fluids. - trend (6) Fall: Qualifiers: Encounter type: initial encounter Qualified Code(s): W19.XXXA - Unspecified fall, initial encounter Code(s): W19.XXXA - Unspecified fall, initial encounter Status: Acute Assessment and Plan: - EKG, initial:? Sinus rhythm, rate 96, borderline left axis deviation, incomplete RBBB, low-voltage QRS. - chest CTA negative for PE, aortic aneurysm or aortic dissection - initial troponin 0.013 -> negative, continue to trend - trauma workup for ground level fall secondary to syncope negative for acute traumatic findings.? Imaging included a head CT, elbow XR, C-spine CT, CXR and chest CTA - check orthostatics - telemetry monitoring Plan Diet:? Regular GI Prophylaxis: ?N/a DVT Prophylaxis: ?Lovenox SQ IV fluids: 3L bolus -> 100 mL/hr Lines/Tubes: ?Peripheral IV Code Status: Full code Quality VTE Prophylaxis VTE prophylaxis: pharmacologic ordered Hospitalist MIPS Advance Care Plan I have confirmed that the patient's Advanced Care Plan is present, code status is documented, or surrogate decision maker is listed in patient medical record.: Yes Medication Reconciliation I have utilized all available resources to obtain, update and review the patients current medications (includes all prescriptions, OTC, herbals, cannabis, and nutritional supplements).: Yes
--- OUTSIDE RECORDS SUMMARY | 2024-12-02 17:40 | XMS_ITS | Continuity of Care Document ---
Author Name [facility] Organization [facility] Care Team Providers Care Reference Assistant Name Role Phone [facility] Unavailable Unavailable Problems Combined list of problems from Department of Defense and Veterans Affairs facilities. It does not include entries that were removed or entered in error. Problem Status Onset Date Problem Type Date of Resolution Comments Source Hyperlipidemia Active Condition [facility] Impaired Fasting Glucose (SCT [id number]) Active Condition [facility] Nightmare Active Condition [facility] Immunizations Combined list of available immunizations from the Department of Defense and Veterans Affairs facilities. 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 Status Comments Source COVID-19 (MODERNA), MRNA, LNP-S, PF, 100 MCG/0.5ML DOSE OR 50 MCG/0.25ML DOSE 3 2020 207 complet ed HISTORICA L INFORMATI ON - FROM OTHER REGISTRY, [facility] COVID-19 (MODERNA), MRNA, LNP-S, PF, 100 MCG/0.5ML DOSE OR 50 MCG/0.25ML DOSE 2 2020 207 complet ed HISTORICA L INFORMATI ON - FROM OTHER REGISTRY, [facility] COVID-19 (MODERNA), MRNA, LNP-S, PF, 100 MCG/0.5ML DOSE OR 50 MCG/0.25ML DOSE 1 2020 207 complet ed HISTORICA L INFORMATI ON - FROM OTHER REGISTRY, [facility] INFLUENZA, INJECTABLE, QUADRIVALENT 2018 158 complet ed 02, Partner: [facility]. Administe red by: [facility] Clinician (NPI=Not Provided) . Partner 91 Lot#: [id number] Mfr: SEQIRUS [facility] INFLUENZA, INJECTABLE, QUADRIVALENT, PRESERVATIVE FREE 2017 150 complet ed 02, Partner: [facility]. Administe red by: [facility] (NPI=Not Provided) . Partner 91 Lot#: [id number] Mfr: Nallatechapril Johnson [facility] INFLUENZA, INJECTABLE, QUADRIVALENT, PRESERVATIVE FREE 1 2017 150 complet ed HISTORICA L INFORMATI ON - FROM OTHER REGISTRY, [facility] INFLUENZA (HISTORICAL) 2003 88 complet ed [facility] TD(ADULT) UNSPECIFIED FORMULATION 1993 139 complet ed MAY BE OVERDUE [facility] Results Combined list of recent chemistry, [...] Feb 16, 2023 09:30 AM Reporting Lab: [place] [id number] Performing Lab: [place] [address] [facility] A1C % HEMOGLOBIN A1C/HEMOGL OBIN.TOTAL IN [...] Feb 16, 2023 09:45 AM Reporting Lab: [address] [address] Performing Lab: [place] [phone] [facility] CBC W/DIFF LEUKOCYTES [#/VOLUME] IN BLOOD BY AUTOMATED COUNT 8.7 10*3/uL 4.0 - 11.0 02/16 Specimen Type: BLOOD No comment entered. Ordering Provider: AMELIA GONZALEZ Report Released Date/Time: Feb 16, 2023 09:45 AM Reporting Lab: [address] [address] Performing Lab: [address] [address] [facility] CBC W/DIFF ERYTHROCYT ES [#/VOLUME] IN BLOOD BY AUTOMATED COUNT 4.57 10*6/uL 4.20 - 5.70 02/16 Specimen Type: BLOOD No comment entered. Ordering Provider: AMELIA GONZALEZ Report Released Date/Time: Feb 16, 2023 09:45 AM Reporting Lab: [address] [address] Performing Lab: [address] [address] [facility] CBC W/DIFF HEMOGLOBIN [MASS/VOLU ME] IN BLOOD 15.9 g/dL 13.0 - 17.0 02/16 Specimen Type: BLOOD No comment entered. Ordering Provider: AMELIA GONZALEZ Report Released Date/Time: Feb 16, 2023 09:45 AM Reporting Lab: [address] [address] Performing Lab: [address] [address] [facility] CBC W/DIFF HEMATOCRIT [VOLUME FRACTION] OF BLOOD BY AUTOMATED COUNT 47.6 40.0 - 51.0 02/16 Specimen Type: BLOOD No comment entered. Ordering Provider: AMELIA GONZALEZ Report Released Date/Time: Feb 16, 2023 09:45 AM Reporting Lab: [address] [address] Performing Lab: [address] [address] [facility] CBC W/DIFF MCV [ENTITIC VOLUME] BY AUTOMATED COUNT 104.2 fL 82 - 99 02/16 H Specimen Type: BLOOD No comment entered. Ordering Provider: AMELIA GONZALEZ Report Released Date/Time: Feb 16, 2023 09:45 AM Reporting Lab: [address] [address] Performing Lab: [facility] [address] [address] [facility] CBC W/DIFF MCHC [MASS/VOLU ME] BY AUTOMATED COUNT 34.8 pg 27 - 34 02/16 H Specimen Type: BLOOD No comment entered. Ordering Provider: AMELIA GONZALEZ Report Released Date/Time: Feb 16, 2023 09:45 AM Reporting Lab: [facility] [address] [place] [phone] Performing Lab: [facility] [address] [place] [phone] [facility] CBC W/DIFF MCHC [MASS/VOLU ME] BY AUTOMATED COUNT 33.4 g/dL 31 - 37 02/16 Specimen Type: BLOOD No comment entered. Ordering Provider: AMELIA GONZALEZ Report Released Date/Time: Feb 16, 2023 09:45 AM Reporting Lab: [address] [address] Performing Lab: [address] [address] [facility] CBC W/DIFF PLATELET MEAN VOLUME [ENTITIC VOLUME] IN BLOOD BY AUTOMATED COUNT 10.3 fL 8 - 12 02/16 Specimen Type: BLOOD No comment entered. Ordering Provider: AMELIA GONZALEZ Report Released Date/Time: Feb 16, 2023 09:45 AM Reporting Lab: [address] [address] Performing Lab: [address] [address] [facility] CBC W/DIFF PLATELETS [#/VOLUME] IN BLOOD BY AUTOMATED COUNT 265 10*3/uL 130 - 400 02/16 Specimen Type: BLOOD No comment entered. Ordering Provider: AMELIA GONZALEZ Report Released Date/Time: Feb 16, 2023 09:45 AM Reporting Lab: [address] [address] Performing Lab: [address] [address] [facility] CBC W/DIFF ERYTHROCYT E DISTRIBUTI ON WIDTH [RATIO] BY AUTOMATED COUNT 13.4 < 15.0 - 15.0 02/16 Specimen Type: BLOOD No comment entered. Ordering Provider: AMELIA GONZALEZ Report Released Date/Time: Feb 16, 2023 09:45 AM Reporting Lab: [facility] [address] [address] Performing Lab: [facility] [address] [address] [facility] CBC W/DIFF NEUTROPHIL S/100 LEUKOCYTES IN BLOOD BY AUTOMATED COUNT 62.8 02/16 Specimen Type: BLOOD No comment entered. Ordering Provider: AMELIA GONZALEZ Report Released Date/Time: Feb 16, 2023 09:45 AM Reporting Lab: [facility] [address] [address] Performing Lab: [facility] [address] [address] [facility] CBC W/DIFF LYMPHOCYTE S/100 LEUKOCYTES IN BLOOD BY AUTOMATED COUNT 26.1 02/16 Specimen Type: BLOOD No comment entered. Ordering Provider: AMELIA GONZALEZ Report Released Date/Time: Feb 16, 2023 09:45 AM Reporting Lab: [facility] [address] [address] Performing Lab: [facility] [address] [address] [facility] CBC W/DIFF MONOCYTES/ 100 LEUKOCYTES IN BLOOD BY AUTOMATED COUNT 9.1 02/16 Specimen Type: BLOOD No comment entered. Ordering Provider: AMELIA GONZALEZ Report Released Date/Time: Feb 16, 2023 09:45 AM Reporting Lab: [facility] [address] [address] Performing Lab: [facility] [address] [address] [facility] CBC W/DIFF EOSINOPHIL S/100 LEUKOCYTES IN BLOOD BY AUTOMATED COUNT 0.8 02/16 Specimen Type: BLOOD No comment entered. Ordering Provider: AMELIA GONZALEZ Report Released Date/Time: Feb 16, 2023 09:45 AM Reporting Lab: [facility] [address] [address] Performing Lab: [facility] [address] [address] [facility] CBC W/DIFF BASOPHILS/ 100 LEUKOCYTES IN BLOOD BY AUTOMATED COUNT 1.0 02/16 Specimen Type: BLOOD No comment entered. Ordering Provider: AMELIA GONZALEZ Report Released Date/Time: Feb 16, 2023 09:45 AM Reporting Lab: [facility] [address] [address] Performing Lab: [facility] [address] [address] [facility] CBC W/DIFF IMMATURE GRANULOCYT ES/100 LEUKOCYTES IN BLOOD 0.2 02/16 Specimen Type: BLOOD No comment entered. Ordering Provider: AMELIA GONZALEZ Report Released Date/Time: Feb 16, 2023 09:45 AM Reporting Lab: [facility] [address] [place] [phone] Performing Lab: [facility] [address] [place] [phone] [facility] CBC W/DIFF NEUTROPHIL S [#/VOLUME] IN BLOOD BY AUTOMATED COUNT 5.5 10*3/uL 1.5 - 8.0 02/16 Specimen Type: BLOOD No comment entered. Ordering Provider: AMELIA GONZALEZ Report Released Date/Time: Feb 16, 2023 09:45 AM Reporting Lab: [facility] [address] [place] [phone] Performing Lab: [facility] [address] [place] [phone] [facility] CBC W/DIFF LYMPHOCYTE S [#/VOLUME] IN BLOOD BY AUTOMATED COUNT 2.3 10*3/uL 1.0 - 4.0 02/16 Specimen Type: BLOOD No comment entered. Ordering Provider: AMELIA GONZALEZ Report Released Date/Time: Feb 16, 2023 09:45 AM Reporting Lab: [facility] [address] [place] [phone] Performing Lab: [facility] [address] [place] [phone] [facility] CBC W/DIFF MONOCYTES [#/VOLUME] IN BLOOD BY AUTOMATED COUNT 0.8 10*3/uL 0.2 - 1.0 02/16 Specimen Type: BLOOD No comment entered. Ordering Provider: AMELIA GONZALEZ Report Released Date/Time: Feb 16, 2023 09:45 AM Reporting Lab: [place] [id number] [facility] [address] Performing Lab: [facility] [address] [address] [facility] CBC W/DIFF EOSINOPHIL S [#/VOLUME] IN BLOOD BY AUTOMATED COUNT 0.1 10*3/uL 0 - 0.4 02/16 Specimen Type: BLOOD No comment entered. Ordering Provider: AMELIA GONZALEZ Report Released Date/Time: Feb 16, 2023 09:45 AM Reporting Lab: [facility] [address] [place] [phone] Performing Lab: [facility] [address] [address] [facility] CBC W/DIFF BASOPHILS [#/VOLUME] IN BLOOD BY AUTOMATED COUNT 0.1 10*3/uL 0 - 0.2 02/16 Specimen Type: BLOOD No comment entered. Ordering Provider: AMELIA GONZALEZ Report Released Date/Time: Feb 16, 2023 09:45 AM Reporting Lab: [address] [address] Performing Lab: [address] [address] [facility] CBC W/DIFF IMMATURE GRANULOCYT ES/100 LEUKOCYTES IN BLOOD <0.110*3 /uL 0 - 0.5 02/16 Specimen Type: BLOOD No comment entered. Ordering Provider: AMELIA GONZALEZ Report Released Date/Time: Feb 16, 2023 09:45 AM Reporting Lab: [facility] [address] [place] [phone] Performing Lab: [facility] [address] [place] [phone] [facility] CBC W/DIFF NUCLEATED ERYTHROCYT ES/100 ERYTHROCYT ES IN BLOOD 0.0 /100{WBC s} 0 - 0.2 02/16 Specimen Type: BLOOD No comment entered. Ordering Provider: AMELIA GONZALEZ Report Released Date/Time: Feb 16, 2023 09:45 AM Reporting Lab: [facility] [address] [place] [phone] Performing Lab: [facility] [address] [place] [phone] [facility] CBC W/DIFF NUCLEATED ERYTHROCYT ES [#/VOLUME] IN BLOOD <0.0110* 3/uL 0 - 0.012 02/16 Specimen Type: BLOOD No comment entered. Ordering Provider: AMELIA GONZALEZ Report Released Date/Time: Feb 16, 2023 09:45 AM Reporting Lab: [address] [address] Performing Lab: [address] [address] [facility] COMPREHE NSIVE PNL ANION GAP IN [...] Feb 16, 2023 09:45 AM Reporting Lab: [address] [address] Performing Lab: [address] [address] [facility] COMPREH NSIVE PNL GLOMERULAR FILTRATION RATE/1.73 [...] Feb 16, 2023 09:45 AM Reporting Lab: [address] [address] Performing Lab: [address] [address] [facility] COMPREHE NSIVE PNL GLUCOSE [MASS/VOLU ME] [...] Feb 16, 2023 09:45 AM Reporting Lab: [address] [address] Performing Lab: [address] [address] [facility] COMPREHE NSIVE PNL POTASSIUM [MOLES/VOL UME] [...] Feb 16, 2023 09:45 AM Reporting Lab: [address] [address] Performing Lab: [address] [address] [facility] COMPREHE NSIVE PNL SODIUM [MOLES/VOL UME] [...] Feb 16, 2023 09:45 AM Reporting Lab: [address] [address] Performing Lab: [address] [address] [facility] COMPREHE NSIVE PNL BILIRUBIN. TOTAL [MASS/VOLU [...] Feb 16, 2023 09:45 AM Reporting Lab: [address] [address] Performing Lab: [address] [address] [facility] COMPREHE NSIVE PNL PROTEIN [MASS/VOLU ME] [...] Feb 16, 2023 09:45 AM Reporting Lab: [address] [address] Performing Lab: [address] [address] [facility] COMPREHE NSIVE PNL ALBUMIN [MASS/VOLU ME] [...] Feb 16, 2023 09:45 AM Reporting Lab: [address] [address] Performing Lab: [address] [address] [facility] COMPREHE NSIVE PNL ALKALINE PHOSPHATAS E [...] Feb 16, 2023 09:45 AM Reporting Lab: [address] [address] Performing Lab: [address] [address] [facility] COMPREHE NSIVE PNL ALANINE AMINOTRANS FERASE [...] Feb 16, 2023 09:45 AM Reporting Lab: [address] [address] Performing Lab: [address] [address] [facility] COMPREHE NSIVE PNL ASPARTATE AMINOTRANS FERASE [...] Feb 16, 2023 09:45 AM Reporting Lab: [address] [address] Performing Lab: [address] [address] [facility] COMPREHE NSIVE PNL UREA NITROGEN [MASS/VOLU [...] Feb 16, 2023 09:45 AM Reporting Lab: [address] [address] Performing Lab: [address] [address] [facility] COMPREHE NSIVE PNL CALCIUM, TOTAL 9.4 [...] Feb 16, 2023 09:45 AM Reporting Lab: [address] [address] Performing Lab: [address] [address] [facility] COMPREHE NSIVE PNL CARBON DIOXIDE, TOTAL [...] Feb 16, 2023 09:45 AM Reporting Lab: [address] [address] Performing Lab: [address] [address] [facility] COMPREHE NSIVE PNL CHLORIDE [MOLES/VOL UME] [...] Feb 16, 2023 09:45 AM Reporting Lab: [address] [address] Performing Lab: [address] [address] [facility] COMPREHE NSIVE PNL CREATININE [MASS/VOLU ME] [...] Feb 16, 2023 09:45 AM Reporting Lab: [address] [address] Performing Lab: [address] [address] [facility] LIPID PNL CHOLESTERO L IN HDL [...] Feb 16, 2023 09:45 AM Reporting Lab: [address] [address] Performing Lab: [address] [address] [facility] LIPID PNL TRIGLYCERI DE [MASS/VOLU ME] [...] Feb 16, 2023 09:45 AM Reporting Lab: [address] [address] Performing Lab: [address] [address] [facility] LIPID PNL CHOLESTERO L IN LDL [MASS/VOLU ME] IN SERUM OR PLASMA BY DIRECT ASSAY [facility] [place] 02/16 Specimen Type: PLASMA Comment: Low-risk levels [...] Feb 16, 2023 09:45 AM Reporting Lab: [address] [address] Performing Lab: [address] [address] [facility] LIPID PNL CHOLESTERO L [MASS/VOLU ME] [...] Feb 16, 2023 09:45 AM Reporting Lab: [address] [address] Performing Lab: [address] [address] [facility] LIPID PNL CHOLESTERO L IN LDL [...] Feb 16, 2023 09:45 AM Reporting Lab: [address] [address] Performing Lab: [address] [address] [facility] PSA TOTAL EIA PROSTATE SPECIFIC AG [MASS/VOLU ME] IN SERUM OR PLASMA 0.83 ng/mL 0.00 - 4.00 02/16 Specimen Type: SERUM Comment: PSA was performed on the Siemens [employer] Immunoassay Analyzer. Ordering Provider: AMELIA GONZALEZ Report Released Date/Time: Feb 16, 2023 09:45 AM Reporting Lab: [address] [address] Performing Lab: [address] [address] [facility] THYROID CASCADE PANEL THYROTROPI N [UNITS/VOL UME] IN SERUM OR PLASMA 2.513 u[IU]/mL 0.550 - 4.780 02/16 Specimen Type: SERUM Comment: PSA was performed on the Siemens [employer]ica Immunoassay Analyzer. Ordering Provider: AMELIA GONZALEZ Report Released Date/Time: Feb 16, 2023 09:45 AM Reporting Lab: [facility] [address] [address] Performing Lab: [facility] [address] [address] [facility] Encounters Combined list of: 1) Encounters from Department of Veterans Affairs facilities going backup to the last 18 months, not all [place] inpatient encounters are included; 2) Encounters from the Department of Defense facilities going backup to 280 months. Location Location Details Encounter Type Encounter Number Reason For Visit Attending Provider ADM Date DC Date Status Disposition Source [facility] Outpatient Encounter [id number] 04/25 [facility] Social History Combined list of available smoking, tobacco, and other social history from Department of Defense and Veterans Affairs facilities. 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
--- OUTSIDE RECORDS SUMMARY | 2024-12-02 17:41 | XMS_ITS | Continuity of Care Document ---
Author Name [facility] Organization [facility] Care Team Providers [facility] Name Role Phone [facility] Unavailable Unavailable Problems Combined list of problems from Department of Defense and Veterans Affairs facilities. It does not include entries that were removed or entered in error. Problem Status Onset Date Problem Type Date of Resolution Comments Source Hyperlipidemia Active Condition [facility] Impaired Fasting Glucose (SCT [id number]) Active Condition [facility] Nightmare Active Condition [facility] Immunizations Combined list of available immunizations from the Department of Defense and Veterans Affairs facilities. Immunization Series Date Given Administered By Site Reaction Lot Number CVX Code Drug Glass Inserter Status Comments Source COVID-19 (MODERNA), MRNA, LNP-S, PF, 100 MCG/0.5ML DOSE OR 50 MCG/0.25ML DOSE 3 2020 207 complet ed HISTORICA L INFORMATI ON - FROM OTHER REGISTRY, [facility] COVID-19 (MODERNA), MRNA, LNP-S, PF, 100 MCG/0.5ML DOSE OR 50 MCG/0.25ML DOSE 2 2020 207 complet ed HISTORICA L INFORMATI ON - FROM OTHER REGISTRY, [facility] COVID-19 (MODERNA), MRNA, LNP-S, PF, 100 MCG/0.5ML DOSE OR 50 MCG/0.25ML DOSE 1 2020 207 complet ed HISTORICA L INFORMATI ON - FROM OTHER REGISTRY, [facility] INFLUENZA, INJECTABLE, QUADRIVALENT 2018 158 complet ed 02, Partner: [facility]. Administe red by: [facility] Clinician (NPI=Not Provided) . Partner 91 Lot#: [id number] Mfr: [facility] INFLUENZA, INJECTABLE, QUADRIVALENT, PRESERVATIVE FREE 2017 150 complet ed 02, Partner: [facility]. [facility] (NPI=Not Provided) . Partner 91 Lot#: [id number] Mfr: [employer]april [facility] INFLUENZA, INJECTABLE, QUADRIVALENT, PRESERVATIVE FREE 1 2017 150 complet ed HISTORICA L INFORMATI ON - FROM OTHER REGISTRY, [facility] INFLUENZA (HISTORICAL) 2003 88 complet ed [facility] TD(ADULT) UNSPECIFIED FORMULATION 1993 139 complet ed MAY BE OVERDUE [facility] Results Combined list of recent chemistry, [...] Feb 16, 2023 09:30 AM Reporting Lab: [place] [phone] Performing Lab: [place] [phone] [facility] A1C % HEMOGLOBIN A1C/HEMOGL OBIN.TOTAL [...] Feb 16, 2023 09:45 AM Reporting Lab: [address] [address] Performing Lab: [place] [phone] [facility] CBC W/DIFF LEUKOCYTES [#/VOLUME] IN BLOOD BY AUTOMATED COUNT 8.7 10*3/uL 4.0 - 11.0 02/16 Specimen Type: BLOOD No comment entered. Ordering Provider: AMELIA GONZALEZ Report Released Date/Time: Feb 16, 2023 09:45 AM Reporting Lab: [address] [address] Performing Lab: [address] [address] [facility] CBC W/DIFF ERYTHROCYT ES [#/VOLUME] IN BLOOD BY AUTOMATED COUNT 4.57 10*6/uL 4.20 - 5.70 02/16 Specimen Type: BLOOD No comment entered. Ordering Provider: AMELIA GONZALEZ Report Released Date/Time: Feb 16, 2023 09:45 AM Reporting Lab: [address] [address] Performing Lab: [address] [address] [facility] CBC W/DIFF HEMOGLOBIN [MASS/VOLU ME] IN BLOOD 15.9 g/dL 13.0 - 17.0 02/16 Specimen Type: BLOOD No comment entered. Ordering Provider: AMELIA GONZALEZ Report Released Date/Time: Feb 16, 2023 09:45 AM Reporting Lab: [address] [address] Performing Lab: [address] [address] [facility] CBC W/DIFF HEMATOCRIT [VOLUME FRACTION] OF BLOOD BY AUTOMATED COUNT 47.6 40.0 - 51.0 02/16 Specimen Type: BLOOD No comment entered. Ordering Provider: AMELIA GONZALEZ Report Released Date/Time: Feb 16, 2023 09:45 AM Reporting Lab: [address] [address] Performing Lab: [address] [address] [facility] CBC W/DIFF MCV [ENTITIC VOLUME] BY AUTOMATED COUNT 104.2 fL 82 - 99 02/16 H Specimen Type: BLOOD No comment entered. Ordering Provider: AMELIA GONZALEZ Report Released Date/Time: Feb 16, 2023 09:45 AM Reporting Lab: [address] [address] Performing Lab: [facility] [address] [facility] [address] [facility] CBC W/DIFF MCHC [MASS/VOLU ME] BY AUTOMATED COUNT 34.8 pg 27 - 34 02/16 H Specimen Type: BLOOD No comment entered. Ordering Provider: AMELIA GONZALEZ Report Released Date/Time: Feb 16, 2023 09:45 AM Reporting Lab: [facility] [address] [place] [address] Performing Lab: [facility] [address] [place] [phone] [facility] CBC W/DIFF MCHC [MASS/VOLU ME] BY AUTOMATED COUNT 33.4 g/dL 31 - 37 02/16 Specimen Type: BLOOD No comment entered. Ordering Provider: AMELIA GONZALEZ Report Released Date/Time: Feb 16, 2023 09:45 AM Reporting Lab: [address] [address] Performing Lab: [address] [address] [facility] CBC W/DIFF PLATELET MEAN VOLUME [ENTITIC VOLUME] IN BLOOD BY AUTOMATED COUNT 10.3 fL 8 - 12 02/16 Specimen Type: BLOOD No comment entered. Ordering Provider: AMELIA GONZALEZ Report Released Date/Time: Feb 16, 2023 09:45 AM Reporting Lab: [address] [address] Performing Lab: [address] [address] [facility] CBC W/DIFF PLATELETS [#/VOLUME] IN BLOOD BY AUTOMATED COUNT 265 10*3/uL 130 - 400 02/16 Specimen Type: BLOOD No comment entered. Ordering Provider: AMELIA GONZALEZ Report Released Date/Time: Feb 16, 2023 09:45 AM Reporting Lab: [address] [address] Performing Lab: [address] [address] [facility] CBC W/DIFF ERYTHROCYT E DISTRIBUTI ON WIDTH [RATIO] BY AUTOMATED COUNT 13.4 < 15.0 - 15.0 02/16 Specimen Type: BLOOD No comment entered. Ordering Provider: AMELIA GONZALEZ Report Released Date/Time: Feb 16, 2023 09:45 AM Reporting Lab: [facility] [address] [facility] [address] Performing Lab: [facility] [address] [facility] [address] [facility] CBC W/DIFF NEUTROPHIL S/100 LEUKOCYTES IN BLOOD BY AUTOMATED COUNT 62.8 02/16 Specimen Type: BLOOD No comment entered. Ordering Provider: AMELIA GONZALEZ Report Released Date/Time: Feb 16, 2023 09:45 AM Reporting Lab: [facility] [address] [facility] [address] Performing Lab: [facility] [address] [facility] [address] [facility] CBC W/DIFF LYMPHOCYTE S/100 LEUKOCYTES IN BLOOD BY AUTOMATED COUNT 26.1 02/16 Specimen Type: BLOOD No comment entered. Ordering Provider: AMELIA GONZALEZ Report Released Date/Time: Feb 16, 2023 09:45 AM Reporting Lab: [facility] [address] [facility] [address] Performing Lab: [facility] [address] [facility] [address] [facility] CBC W/DIFF MONOCYTES/ 100 LEUKOCYTES IN BLOOD BY AUTOMATED COUNT 9.1 02/16 Specimen Type: BLOOD No comment entered. Ordering Provider: AMELIA GONZALEZ Report Released Date/Time: Feb 16, 2023 09:45 AM Reporting Lab: [facility] [address] [facility] [address] Performing Lab: [facility] [address] [facility] [address] [facility] CBC W/DIFF EOSINOPHIL S/100 LEUKOCYTES IN BLOOD BY AUTOMATED COUNT 0.8 02/16 Specimen Type: BLOOD No comment entered. Ordering Provider: AMELIA GONZALEZ Report Released Date/Time: Feb 16, 2023 09:45 AM Reporting Lab: [facility] [address] [facility] [address] Performing Lab: [facility] [address] [facility] [address] [facility] CBC W/DIFF BASOPHILS/ 100 LEUKOCYTES IN BLOOD BY AUTOMATED COUNT 1.0 02/16 Specimen Type: BLOOD No comment entered. Ordering Provider: AMELIA GONZALEZ Report Released Date/Time: Feb 16, 2023 09:45 AM Reporting Lab: [facility] [address] [facility] [address] Performing Lab: [facility] [address] [facility] [address] [facility] CBC W/DIFF IMMATURE GRANULOCYT ES/100 LEUKOCYTES IN BLOOD 0.2 02/16 Specimen Type: BLOOD No comment entered. Ordering Provider: AMELIA GONZALEZ Report Released Date/Time: Feb 16, 2023 09:45 AM Reporting Lab: [facility] [address] [place] [phone] Performing Lab: [facility] [address] [place] [phone] [facility] CBC W/DIFF NEUTROPHIL S [#/VOLUME] IN BLOOD BY AUTOMATED COUNT 5.5 10*3/uL 1.5 - 8.0 02/16 Specimen Type: BLOOD No comment entered. Ordering Provider: AMELIA GONZALEZ Report Released Date/Time: Feb 16, 2023 09:45 AM Reporting Lab: [facility] [address] [place] [phone] Performing Lab: [facility] [address] [place] [phone] [facility] CBC W/DIFF LYMPHOCYTE S [#/VOLUME] IN BLOOD BY AUTOMATED COUNT 2.3 10*3/uL 1.0 - 4.0 02/16 Specimen Type: BLOOD No comment entered. Ordering Provider: AMELIA GONZALEZ Report Released Date/Time: Feb 16, 2023 09:45 AM Reporting Lab: [facility] [address] [place] [phone] Performing Lab: [facility] [address] [place] [phone] [facility] CBC W/DIFF MONOCYTES [#/VOLUME] IN BLOOD BY AUTOMATED COUNT 0.8 10*3/uL 0.2 - 1.0 02/16 Specimen Type: BLOOD No comment entered. Ordering Provider: AMELIA GONZALEZ Report Released Date/Time: Feb 16, 2023 09:45 AM Reporting Lab: [place] [id number] [facility] [address] Performing Lab: [facility] [address] [facility] [address] [facility] CBC W/DIFF EOSINOPHIL S [#/VOLUME] IN BLOOD BY AUTOMATED COUNT 0.1 10*3/uL 0 - 0.4 02/16 Specimen Type: BLOOD No comment entered. Ordering Provider: AMELIA GONZALEZ Report Released Date/Time: Feb 16, 2023 09:45 AM Reporting Lab: [facility] [address] [place] [phone] Performing Lab: [facility] [address] [facility] [address] [facility] CBC W/DIFF BASOPHILS [#/VOLUME] IN BLOOD BY AUTOMATED COUNT 0.1 10*3/uL 0 - 0.2 02/16 Specimen Type: BLOOD No comment entered. Ordering Provider: AMELIA GONZALEZ Report Released Date/Time: Feb 16, 2023 09:45 AM Reporting Lab: [address] [address] Performing Lab: [address] [address] [facility] CBC W/DIFF IMMATURE GRANULOCYT ES/100 LEUKOCYTES IN BLOOD <0.110*3 /uL 0 - 0.5 02/16 Specimen Type: BLOOD No comment entered. Ordering Provider: AMELIA GONZALEZ Report Released Date/Time: Feb 16, 2023 09:45 AM Reporting Lab: [facility] [address] [place] [phone] Performing Lab: [facility] [address] [place] [phone] [facility] CBC W/DIFF NUCLEATED ERYTHROCYT ES/100 ERYTHROCYT ES IN BLOOD 0.0 /100{WBC s} 0 - 0.2 02/16 Specimen Type: BLOOD No comment entered. Ordering Provider: AMELIA GONZALEZ Report Released Date/Time: Feb 16, 2023 09:45 AM Reporting Lab: [facility] [address] [place] [phone] Performing Lab: [facility] [address] [place] [phone] [facility] CBC W/DIFF NUCLEATED ERYTHROCYT ES [#/VOLUME] IN BLOOD <0.0110* 3/uL 0 - 0.012 02/16 Specimen Type: BLOOD No comment entered. Ordering Provider: AMELIA GONZALEZ Report Released Date/Time: Feb 16, 2023 09:45 AM Reporting Lab: [address] [address] Performing Lab: [address] [address] [facility] COMPREHE NSIVE PNL ANION GAP [...] Feb 16, 2023 09:45 AM Reporting Lab: [address] [address] Performing Lab: [address] [address] [facility] COMPREH NSIVE PNL GLOMERULAR FILTRATION [...] Feb 16, 2023 09:45 AM Reporting Lab: [address] [address] Performing Lab: [address] [address] [facility] COMPREHE NSIVE PNL GLUCOSE [MASS/VOLU [...] Feb 16, 2023 09:45 AM Reporting Lab: [address] [address] Performing Lab: [address] [address] [facility] COMPREHE NSIVE PNL POTASSIUM [MOLES/VOL [...] Feb 16, 2023 09:45 AM Reporting Lab: [address] [address] Performing Lab: [address] [address] [facility] COMPREHE NSIVE PNL SODIUM [MOLES/VOL [...] Feb 16, 2023 09:45 AM Reporting Lab: [address] [address] Performing Lab: [address] [address] [facility] COMPREHE NSIVE PNL BILIRUBIN. TOTAL [...] Feb 16, 2023 09:45 AM Reporting Lab: [address] [address] Performing Lab: [address] [address] [facility] COMPREHE NSIVE PNL PROTEIN [MASS/VOLU [...] Feb 16, 2023 09:45 AM Reporting Lab: [address] [address] Performing Lab: [address] [address] [facility] COMPREHE NSIVE PNL ALBUMIN [MASS/VOLU [...] mg/dL -Very High: >=190 mg/dL Ordering Provider: AMLEIA GONZALEZ Report Released Date/Time: Feb 16, 2023 09:45 AM Reporting Lab: [address] [address] Performing Lab: [address] [address] [facility] COMPREHE NSIVE PNL ALKALINE PHOSPHATAS [...] Feb 16, 2023 09:45 AM Reporting Lab: [address] [address] Performing Lab: [address] [address] [facility] COMPREHE NSIVE PNL ALANINE AMINOTRANS [...] Feb 16, 2023 09:45 AM Reporting Lab: [address] [address] Performing Lab: [address] [address] [facility] COMPREHE NSIVE PNL ASPARTATE AMINOTRANS [...] Feb 16, 2023 09:45 AM Reporting Lab: [address] [address] Performing Lab: [address] [address] [facility] COMPREHE NSIVE PNL UREA NITROGEN [...] Feb 16, 2023 09:45 AM Reporting Lab: [address] [address] Performing Lab: [address] [address] [facility] COMPREHE NSIVE PNL CALCIUM, TOTAL [...] Feb 16, 2023 09:45 AM Reporting Lab: [address] [address] Performing Lab: [address] [address] [facility] COMPREHE NSIVE PNL CARBON DIOXIDE, [...] Feb 16, 2023 09:45 AM Reporting Lab: [address] [address] Performing Lab: [address] [address] [facility] COMPREHE NSIVE PNL CHLORIDE [MOLES/VOL [...] Feb 16, 2023 09:45 AM Reporting Lab: [address] [address] Performing Lab: [address] [address] [facility] COMPREHE NSIVE PNL CREATININE [MASS/VOLU [...] Feb 16, 2023 09:45 AM Reporting Lab: [address] [address] Performing Lab: [address] [address] [facility] LIPID PNL CHOLESTERO L IN [...] Feb 16, 2023 09:45 AM Reporting Lab: [address] [address] Performing Lab: [address] [address] [facility] LIPID PNL TRIGLYCERI DE [MASS/VOLU [...] Feb 16, 2023 09:45 AM Reporting Lab: [address] [address] Performing Lab: [address] [address] [facility] LIPID PNL CHOLESTERO L IN LDL [MASS/VOLU ME] IN SERUM OR PLASMA BY DIRECT ASSAY [facility] 02/16 Specimen Type: PLASMA Comment: Low-risk levels [...] Feb 16, 2023 09:45 AM Reporting Lab: [address] [address] Performing Lab: [address] [address] [facility] LIPID PNL CHOLESTERO L [MASS/VOLU [...] Feb 16, 2023 09:45 AM Reporting Lab: [address] [address] Performing Lab: [address] [address] [facility] LIPID PNL CHOLESTERO L IN [...] Feb 16, 2023 09:45 AM Reporting Lab: [address] [address] Performing Lab: [address] [address] [facility] PSA TOTAL EIA PROSTATE SPECIFIC AG [MASS/VOLU ME] IN SERUM OR PLASMA 0.83 ng/mL 0.00 - 4.00 02/16 Specimen Type: SERUM Comment: PSA was performed on the Siemens [employer] Immunoassay Analyzer. Ordering Provider: AMELIA GONZALEZ Report Released Date/Time: Feb 16, 2023 09:45 AM Reporting Lab: [address] [address] Performing Lab: [address] [address] [facility] THYROID CASCADE PANEL THYROTROPI N [UNITS/VOL UME] IN SERUM OR PLASMA 2.513 u[IU]/mL 0.550 - 4.780 02/16 Specimen Type: SERUM Comment: PSA was performed on the [employer]ens [employer] Immunoassay Analyzer. Ordering Provider: AMELIA GONZALEZ Report Released Date/Time: Feb 16, 2023 09:45 AM Reporting Lab: [facility] [address] [facility] [address] Performing Lab: [facility] [address] [facility] [address] [facility] Encounters Combined list of: 1) Encounters from Department of Veterans Affairs facilities going backup to the last 18 months, not all CT inpatient encounters are included; 2) Encounters from the Department of Defense facilities going backup to 280 months. Location Location Details Encounter Type Encounter Number Reason For Visit Attending Provider ADM Date DC Date Status Disposition Source [facility] Outpatient Encounter [id number] 04/25 [facility] Social History Combined list of available smoking, tobacco, and other social history from Department of Defense and Veterans Affairs facilities. Social History Type Response Date Comment Sourc e Tobacco smoking status NHIS [facility] FORMER USER 02/16/2023 [facility] History of tobacco use VA-TOBACCO QUIT 1 5 YRS OR MORE 02/16/2023 [facility] History of tobacco use LIFETIME [employer] USER 10/21/2003 [facility]
[2024-12-02] MEDS: SODIUM CHLORIDE 0.9% IV 1,000 ML 100 ML IV CONT (18:29)
[2024-12-02] MEDS: cefTRIAXone 1 GM in SODIUM CHLORIDE 0.9% IV 50 ML 100 ML IVPB (18:29)
[2024-12-02 19:31] VITALS: BP 137/60; PULSE 95; RESP 20; TEMP 37.4; O2SAT 97
[2024-12-02 20:00] VITALS: PULSE 87
[2024-12-02 22:52] VITALS: O2SAT 97
[2024-12-03] VITALS (11 sets, daily range): BP systolic 90–117; BP diastolic 53–65; PULSE 63–87; RESP 18–22; TEMP 36.8–37.2; O2SAT 91–96
[2024-12-03 04:56] LABS: Hematocrit 41.3 % (42.0-52.0); Hemoglobin 13.4 g/dL (14.0-18.0); Immature Granulocyte Percent A 0.9 % (0-0.5); Lymphocytes Absolute Auto 1.77 K/mm3 (0.9-3.2); Mean Corpuscular HGB Conc 32.4 g/dl (32-36); Mean Corpuscular Hemoglobin 34.3 pg (26-34); Mean Corpuscular Volume 105.6 fl (80-100); Nucleated Red Blood Cells Absolute Auto 0.000 K/mm3 (0.0-0.012); Nucleated Red Blood Cells Perc 0.0 % (0.0-0.2); Platelet Count Result 201 k/mm3 (150-375); Red Blood Count 3.91 M/mm3 (4.6-6.20); White Blood Count 16.7 K/mm3 (4.5-10.0)
[2024-12-03] MEDS: SODIUM CHLORIDE 0.9% IV 1,000 ML 100 ML IV CONT (05:11)
[2024-12-03 05:12] LABS: Alanine Aminotransferase 144 U/L (6-50); Albumin Level 3.3 g/dL (3.5-5.1); Alkaline Phosphatase 85 U/L (38-126); Anion Gap 7 mmol/L (4-12); Aspartate Amino Transferase 612 U/L (17-59); Bilirubin,Total 1.2 mg/dL (0.2-1.3); Blood Urea Nitrogen 22 mg/dL (9-20); Calcium 8.1 mg/dL (8.4-10.2); Carbon Dioxide 25 mmol/L (22-30); Chloride 107 mmol/L (98-107); Estimated CRCL calculation 47 ml/min; Estimated Glomerular Filt Rate 42; Glucose 89 mg/dL (65-110); Magnesium 2.2 mg/dL (1.6-2.3); Potassium 4.0 mmol/L (3.4-5.0); Sodium 139 mmol/L (137-145); Total Protein 6.6 g/dL (6.3-8.2)
--- NOTE | 2024-12-03 07:38 | P.PNIM_ITS ---
Progress Note: A&P Assessment and Plan (1) Sepsis: Qualifiers: Acute renal failure type: unspecified Sepsis acute organ dysfunction status: with acute organ dysfunction Sepsis type: sepsis due to unspecified or ganism Severe sepsis acute organ dysfunction type: acute renal failure Severe sepsis shock status: without septic shock Qualified Code(s): A41.9 - Sepsis, unspecified organism; R65.20 - Severe sepsis without septic shock; N17.9 - Acute kidney failure, unspecified Code(s): A41.9 - Sepsis, unspecified organism Status: Acute Assessment and Plan: * meets SIRS criteria:? HR greater than 90, WBC greater than 12 * lactic acid 1.0- 30 mL/kg = 3.8L, given 3L in the ED * suspected source:? UTI * started on Zosyn on 12/02 * blood cultures drawn on 12/02, pending results * CXR and chest CTA showed clear lungs * evidence of VALERIE and for possible shock liver, secondary to rhabdomyolysis versus septic shock.? * Monitor WBC, CK, and cultures (2) UTI (urinary tract infection): Qualifiers: Hematuria presence: without hematuria Urinary tract infection type: acute cystitis Qualified Code(s): N30.00 - Acute cystitis without hematuria Code(s): N39.0 - Urinary tract infection, site not specified Status: Acute Assessment and Plan: * UA:? Cloudy, 3+ blood, 3+ blood, positive nitrates, 1+ bilirubin, 2+ leuks, 6- 10 RBC, 31-50 WBC, rare epithelial cells, 2+ bacteria * UC pending * no previous micro available for review * started on Zosyn on 12/02 in the ED, will exchange to ceftriaxone on 12/02 (3) Rhabdomyolysis: Qualifiers: Encounter type: initial encounter Rhabdomyolysis type: traumatic Qualified Code(s): T79.6XXA - Traumatic ischemia of muscle, initial encounter Code(s): M62.82 - Rhabdomyolysis Status: Inactive Assessment and Plan: * CK >30243 * presumed secondary to prolonged time spend on floor after fall, estimated 8 hours * LFTs elevated and VALERIE noted based off lab work in 2020 * aggressive IV fluids: 3L bolus -> 100 mL/hour * trend CK and renal function * 12/03: CK continues to be >49747 * Continue IV fluid hydration (4) VALERIE (acute kidney injury): Code(s): N17.9 - Acute kidney failure, unspecified Status: Inactive Assessment and Plan: * creatinine or 1.89, BUN 24, and GFR 35 upon presentation.? Renal function within normal limits in 2020, no further data available. * presumed secondary to rhabdomyolysis, will start with aggressive IV fluids.? If no improvement consider further workup and nephrology consultation. * monitor I&Os * 12/03: Cr 1.89 -> 1.61 (5) Transaminitis: Code(s): R74.01 - Elevation of levels of liver transaminase levels Status: Inactive Assessment and Plan: * total bilirubin 2.3, AST greater than 750, ALT 147, alk-phos within normal limits * unclear if secondary to severe sepsis versus rhabdomyolysis.? Started on broad-spectrum antibiotics and aggressive IV fluids. * trend * 12/03: AST/ALT downtrending, >750/147 -> 612/144 * Continue to monitor, no upper abdominal pain (6) Fall: Qualifiers: Encounter type: initial encounter Qualified Code(s): W19.XXXA - Unspecified fall, initial encounter Code(s): W19.XXXA - Unspecified fall, initial encounter Status: Acute Assessment and Plan: * EKG, initial:? Sinus rhythm, rate 96, borderline left axis deviation, incomplete RBBB, low-voltage QRS. * chest CTA negative for PE, aortic aneurysm or aortic dissection * initial troponin 0.013 -> negative, continue to trend * trauma workup for ground level fall secondary to syncope negative for acute traumatic findings.? Imaging included a head CT, elbow XR, C-spine CT, CXR and chest CTA * check orthostatics * telemetry monitoring Plan Diet:? Regular GI Prophylaxis: ?N/a DVT Prophylaxis: ?Lovenox SQ IV fluids: 3L bolus -> 100 mL/hr Lines/Tubes: ?Peripheral IV Code Status: Full code Subjective Date/time seen: 12/03/24 07:38 Interval history: 74 y/o M with no significant known PMH presented with fall and weakness. The merary quintero presented to [facility] on 12/02 for further evaluation of fall and weakness. The patient reports he was walking to another part of his house when he had a fall, does not believe he passed out or lost consciousness. 12/03/2024 Patient sitting comfortably at bedside during examination. Denies any chest pain, shortness of breath, nausea/vomiting, or abdominal pain at this time. Patient's only concern at this time is his dog at home for which he will need to contact someone in order to take care of it. Leukocytosis slightly downtrending, down from 19.4 to 16.7. Blood and urine culture still pending at this time. Imaging so far has been reassuring. VALERIE improving as well, creatinine down from 1.89->1.61. We will look to continue IV antibiotics and IV fluid hydration for rhabdomyolysis. No other concerns at this time. Review of Systems Review of Systems: All systems reviewed & are unremarkable except as noted in HPI and below Exam Narrative: ill appearing, obese. occasional ectopy. no mrumur. lungs clear. dry. Const: General: comfortable and no acute distress Other: , male, obese body habitus, ill-appearing HENMT: Face/Nose/Sinus: Normal nares present Mouth: Yes dry mucous membranes Eyes: General: appearance normal, both eyes and all related structures Sclera: sclerae normal Pupils: Equal, round and reactive pupils present EOM: EOMs intact bilaterally Resp: Effort & Inspection: normal respiratory effort Auscultation: clear to auscultation bilaterally Cardio: Rate: regular rate Rhythm: regular rhythm Other: Occasional ectopy, no appreciable murmur. GI: Other: Abdomen soft, nondistended, nontender. Normoactive bowel sounds in all quadrants. Skin: General skin exam: normal color and no rashes or lesions noted Wounds: no wounds Neuro: Cranial nerves: Yes Equal, round and reactive pupils present Speech: normal speech Sensory Exam: normal sensation Other: Generalized weakness, A&O x4 Extrem: General: normal to inspection Psych: Mental Status: mental status grossly normal Affect: normal affect Other: Fair insight and judgment Objective Data Vital Signs Vital Signs: Vital Signs - 24 hr 12/02/24 15:32 12/02/24 15:56 12/02/24 16:05 Temperature 99.2 F Pulse Rate 81 86 86 Respiratory Rate 22 H 20 Blood Pressure 180/85 H Pulse Oximetry 99 99 Oxygen Delivery Nasal Cannula Oxygen Flow Rate 2 12/02/24 19:31 12/02/24 20:00 12/02/24 22:52 Temperature 99.3 F Pulse Rate 95 87 Respiratory Rate 20 Blood Pressure 137/60 Pulse Oximetry 97 97 Oxygen Delivery Nasal Cannula Oxygen Flow Rate 2 12/03/24 00:00 12/03/24 03:54 12/03/24 04:00 Temperature 98.6 F Pulse Rate 85 82 81 Respiratory Rate 20 Blood Pressure 90/65 L Pulse Oximetry 93 Oxygen Delivery Oxygen Flow Rate Intake/Output Intake/Output: Intake & Output 11/30/24 12/01/24 12/02/24 12/03/24 23:59 23:59 23:59 23:59 Intake Total 290 1350 Output Total 750 400 Balance -460 950 Meds/Results Medications: Active Medications Generic Name Dose Route Start Last Admin Trade Name Freq PRN Reason Stop Dose Admin Acetaminophen 650 mg 12/02/24 17:17 Acetaminophen 325 Mg Tablet PO Q4H PRN Mild Pain (1-3) or Fever Hydrocodone Bitart/Acetaminophen 1 tab 12/02/24 17:17 Hydrocodone/Acetaminophen (*Crx) 5-325 Mg Tablet PO Q4H PRN Moderate Pain (4-6) Enoxaparin Sodium 40 mg 12/03/24 09:00 Enoxaparin 40 Mg/0.4 Ml Syringe SUB-Q DAILY KATRIN Ceftriaxone Sodium 1 gm/ 50 mls @ 100 mls/hr 12/02/24 18:00 12/02/24 19:00 Sodium Chloride IVPB Infused Q24H KATRIN Infusion Sodium Chloride 1,000 mls @ 100 mls/hr 12/02/24 17:20 12/03/24 05:11 Normal Saline Iv IV CONT 100 mls/hr .Q10H KATRIN Administration Morphine Sulfate 2 mg 12/02/24 17:17 Morphine Sulfate (*Crx) 2 Mg/Ml Inj IV PUSH Q4H PRN Pain Rated 7-10 Naloxone HCl 0.1 mg 12/02/24 17:17 Naloxone Hcl 0.4 Mg/Ml Vial IV PUSH Q2M PRN Opiate Reversal Ondansetron HCl 4 mg 12/02/24 17:17 Ondansetron Inj 4 Mg/2 Ml Vial IV PUSH Q6H PRN Nausea And Vomiting Labs Labs: Laboratory Results - last 24 hr 12/03/24 03:56 WBC 16.7 H RBC 3.91 L Hgb 13.4 L Hct 41.3 L MCV 105.6 H MCH 34.3 H MCHC 32.4 RDW 14.3 Plt Count 201 MPV 10.1 Immature Gran % (Auto) 0.9 H Neut % (Auto) 78.8 H Lymph % (Auto) 10.6 L [place] % (Auto) 9.4 H Eos % (Auto) 0.0 Baso % (Auto) 0.3 Lymph # (Auto) 1.77 [place] # (Auto) 1.6 H Eos # (Auto) 0.0 Baso # (Auto) 0.1 Abs Immat Gran (auto) 0.15 H Absolute Neuts (auto) 13.2 H Absolute Nucleated RBC 0.000 Nucleated RBC % 0.0 Sodium 139 Potassium 4.0 Chloride 107 Carbon Dioxide 25 Anion Gap 7 BUN 22 H Creatinine 1.61 H Estim Creat Clear Calc 47 Estimated GFR 42 L Glucose 89 Calcium 8.1 L Phosphorus 3.3 Magnesium 2.2 Total Bilirubin 1.2 AST 612 H ALT 144 H Alkaline Phosphatase 85 Total Protein 6.6 Albumin 3.3 L Quality VTE Prophylaxis VTE prophylaxis: pharmacologic ordered
[2024-12-03 09:43] LABS: Creatine Kinase > 16000 U/L (55-170)
[2024-12-03] MEDS: cefTRIAXone 1 GM in SODIUM CHLORIDE 0.9% IV 50 ML 100 ML IVPB (17:36)
[2024-12-04] VITALS: PULSE 70
[2024-12-04] MEDS: SODIUM CHLORIDE 0.9% IV 1,000 ML 100 ML IV CONT (00:24)
[2024-12-04 04:00] VITALS: PULSE 70
[2024-12-04 06:00] VITALS: BP 112/61; PULSE 69; RESP 18; TEMP 36.7; O2SAT 94
--- NOTE | 2024-12-04 06:56 | P.PNIM_ITS ---
Progress Note: A&P Assessment and Plan (1) Sepsis: Qualifiers: Sepsis type: sepsis due to unspecified organism Sepsis acute organ dysfunction status: with acute organ dysfunction Severe sepsis acute organ dysfunction type: acute renal failure Acute renal failure type: unspecified Severe sepsis shock status: without septic shock Qualified Code(s): A41.9 - Sepsis, unspecified organism; R65.20 - Severe sepsis without septic shock; N17.9 - Acute kidney failure, unspecified Code(s): A41.9 - Sepsis, unspecified organism Status: Acute Assessment and Plan: * meets SIRS criteria:? HR greater than 90, WBC greater than 12 * lactic acid 1.0- 30 mL/kg = 3.8L, given 3L in the ED * suspected source:? UTI * started on Zosyn on 12/02 * BC (-) for growth - preliminary * CXR and chest CTA showed clear lungs * evidence of VALERIE and for possible shock liver, secondary to rhabdomyolysis versus septic shock.? * Monitor WBC, CK, and cultures * 12/04: WBC * Urine cultures shows growth of Proteus Mirabilis/penneri (2) UTI (urinary tract infection): Qualifiers: Urinary tract infection type: acute cystitis Hematuria presence: without hematuria Qualified Code(s): N30.00 - Acute cystitis without hematuria Code(s): N39.0 - Urinary tract infection, site not specified Status: Acute Assessment and Plan: * UA:? Cloudy, 3+ blood, 3+ blood, positive nitrates, 1+ bilirubin, 2+ leuks, 6- 10 RBC, 31-50 WBC, rare epithelial cells, 2+ bacteria * UC - Proteus Mirabilis/penneri * no previous micro available for review * started on Zosyn on 12/02 in the ED, will exchange to ceftriaxone on 12/02 (3) Rhabdomyolysis: Qualifiers: Encounter type: initial encounter Rhabdomyolysis type: traumatic Qualified Code(s): T79.6XXA - Traumatic ischemia of muscle, initial encounter Code(s): M62.82 - Rhabdomyolysis Status: Inactive Assessment and Plan: * CK >96828 * presumed secondary to prolonged time spend on floor after fall, estimated 8 hours * LFTs elevated and VALERIE noted based off lab work in 2020 * aggressive IV fluids: 3L bolus -> 100 mL/hour * trend CK and renal function * 12/04: CK continues to be >69214 * Continue IV fluid hydration (4) VALERIE (acute kidney injury): Code(s): N17.9 - Acute kidney failure, unspecified Status: Inactive Assessment and Plan: * creatinine or 1.89, BUN 24, and GFR 35 upon presentation.? Renal function within normal limits in 2020, no further data available. * presumed secondary to rhabdomyolysis, will start with aggressive IV fluids.? If no improvement consider further workup and nephrology consultation. * monitor I&Os * 12/04: (5) Transaminitis: Code(s): R74.01 - Elevation of levels of liver transaminase levels Status: Inactive Assessment and Plan: * total bilirubin 2.3, AST greater than 750, ALT 147, alk-phos within normal limits * unclear if secondary to severe sepsis versus rhabdomyolysis.? Started on broad-spectrum antibiotics and aggressive IV fluids. * trend * 12/04: AST/ALT >750/147 -> 612/144 -> * Continue to monitor, no upper abdominal pain (6) Fall: Qualifiers: Encounter type: initial encounter Qualified Code(s): W19.XXXA - Unspecified fall, initial encounter Code(s): W19.XXXA - Unspecified fall, initial encounter Status: Acute Assessment and Plan: * EKG, initial:? Sinus rhythm, rate 96, borderline left axis deviation, inc omplete RBBB, low-voltage QRS. * chest CTA negative for PE, aortic aneurysm or aortic dissection * initial troponin 0.013 -> negative, continue to trend * trauma workup for ground level fall secondary to syncope negative for acute traumatic findings.? Imaging included a head CT, elbow XR, C-spine CT, CXR and chest CTA * check orthostatics * telemetry monitoring Plan Diet:? Regular GI Prophylaxis: ?N/a DVT Prophylaxis: ?Lovenox SQ IV fluids: 3L bolus -> 100 mL/hr Lines/Tubes: ?Peripheral IV Code Status: Full code Subjective Date/time seen: 12/04/24 06:56 Interval history: 74 y/o M with no significant known PMH presented with fall and weakness. The patient presented to [facility] on 12/02 for further evaluation of fall and weakness. The patient reports he was walking to another part of his house when he had a fall, does not believe he passed out or lost consciousness. 12/04/2024 Patient sitting comfortably at bedside during examination. Review of Systems Review of Systems: All systems reviewed & are unremarkable except as noted in HPI and below Exam Narrative: ill appearing, obese. occasional ectopy. no mrumur. lungs clear. dry. Const: General: comfortable and no acute distress Other: , male, obese body habitus, ill-appearing HENMT: Face/Nose/Sinus: Normal nares present Mouth: Yes dry mucous membranes Eyes: General: appearance normal, both eyes and all related structures Sclera: sclerae normal Pupils: Equal, round and reactive pupils present EOM: EOMs intact bilaterally Resp: Effort & Inspection: normal respiratory effort Auscultation: clear to auscultation bilaterally Cardio: Rate: regular rate Rhythm: regular rhythm Other: Occasional ectopy, no appreciable murmur. GI: Other: Abdomen soft, nondistended, nontender. Normoactive bowel sounds in all q uadrants. Skin: General skin exam: normal color and no rashes or lesions noted Wounds: no wounds Neuro: Cranial nerves: Yes Equal, round and reactive pupils present Speech: normal speech Sensory Exam: normal sensation Other: Generalized weakness, A&O x4 Extrem: General: normal to inspection Psych: Mental Status: mental status grossly normal Affect: normal affect Other: Fair insight and judgment Objective Data Vital Signs Vital Signs: Vital Signs - 24 hr 12/03/24 07:34 12/03/24 08:00 12/03/24 08:30 Temperature Pulse Rate 77 87 Respiratory Rate 20 Blood Pressure Pulse Oximetry 91 96 Oxygen Delivery Nasal Cannula Nasal Cannula Oxygen Flow Rate 2 2 Fraction of Inspired Oxygen 28 28 12/03/24 12:00 12/03/24 14:00 12/03/24 16:00 Temperature 99 F Pulse Rate 79 77 75 Respiratory Rate 22 H Blood Pressure 106/56 L Pulse Oximetry 96 Oxygen Delivery Oxygen Flow Rate Fraction of Inspired Oxygen 12/03/24 20:00 12/03/24 20:12 12/03/24 22:00 Temperature 98.2 F Pulse Rate 63 70 Respiratory Rate 18 Blood Pressure 117/53 L Pulse Oximetry 93 Oxygen Delivery Room Air Oxygen Flow Rate Fraction of Inspired Oxygen 12/04/24 00:00 12/04/24 04:00 12/04/24 06:00 Temperature 98.1 F Pulse Rate 70 70 69 Respiratory Rate 18 Blood Pressure 112/61 Pulse Oximetry 94 Oxygen Delivery Oxygen Flow Rate Fraction of Inspired Oxygen Intake/Output Intake/Output: Intake & Output 12/01/24 12/02/24 12/03/24 12/04/24 23:59 23:59 23:59 23:59 Intake Total 290 4234 300 Output Total 750 1300 1200 Balance -460 2934 -900 Meds/Results Medications: Active Medications Generic Name Dose Route Start Last Admin Trade Name Freq PRN Reason Stop Dose Admin Acetaminophen 650 mg 12/02/24 17:17 Acetaminophen 325 Mg Tablet PO Q4H PRN Mild Pain (1-3) or Fever Hydrocodone Bitart/Acetaminophen 1 tab 12/02/24 17:17 Hydrocodone/Acetaminophen (*Crx) 5-325 Mg Tablet PO Q4H PRN Moderate Pain (4-6) Enoxaparin Sodium 40 mg 12/03/24 09:00 12/03/24 12:05 Enoxaparin 40 Mg/0.4 Ml Syringe SUB-Q Not Given DAILY KATRIN Ceftriaxone Sodium 1 gm/ 50 mls @ 100 mls/hr 12/02/24 18:00 12/03/24 18:06 Sodium Chloride IVPB Infused Q24H KATRIN Infusion Sodium Chloride 1,000 mls @ 100 mls/hr 12/02/24 17:20 12/04/24 00:24 Normal Saline Iv IV CONT 100 mls/hr .Q10H KATRIN Administration Morphine Sulfate 2 mg 12/02/24 17:17 Morphine Sulfate (*Crx) 2 Mg/Ml Inj IV PUSH Q4H PRN Pain Rated 7-10 Naloxone HCl 0.1 mg 12/02/24 17:17 Naloxone Hcl 0.4 Mg/Ml Vial IV PUSH Q2M PRN Opiate Reversal Ondansetron HCl 4 mg 12/02/24 17:17 Ondansetron Inj 4 Mg/2 Ml Vial IV PUSH Q6H PRN Nausea And Vomiting Labs Labs: Laboratory Results - last 24 hr 12/03/24 03:56 Total Creatine Kinase > 00365 H Quality VTE Prophylaxis VTE prophylaxis: pharmacologic ordered
[2024-12-04 07:41] LABS: Hematocrit 39.1 % (42.0-52.0); Hemoglobin 12.9 g/dL (14.0-18.0); Immature Granulocyte Percent A 0.7 % (0-0.5); Lymphocytes Absolute Auto 1.57 K/mm3 (0.9-3.2); Mean Corpuscular HGB Conc 33.0 g/dl (32-36); Mean Corpuscular Hemoglobin 34.5 pg (26-34); Mean Corpuscular Volume 104.5 fl (80-100); Nucleated Red Blood Cells Absolute Auto 0.000 K/mm3 (0.0-0.012); Nucleated Red Blood Cells Perc 0.0 % (0.0-0.2); Platelet Count Result 208 k/mm3 (150-375); Red Blood Count 3.74 M/mm3 (4.6-6.20); White Blood Count 10.4 K/mm3 (4.5-10.0)
[2024-12-04 08:00] VITALS: PULSE 75
[2024-12-04 08:05] LABS: Creatine Kinase 13759 U/L (55-170)
[2024-12-04 08:15] LABS: Alanine Aminotransferase 142 U/L (6-50); Albumin Level 3.0 g/dL (3.5-5.1); Alkaline Phosphatase 73 U/L (38-126); Anion Gap 4 mmol/L (4-12); Aspartate Amino Transferase 454 U/L (17-59); Bilirubin,Total 0.8 mg/dL (0.2-1.3); Blood Urea Nitrogen 20 mg/dL (9-20); Calcium 8.2 mg/dL (8.4-10.2); Carbon Dioxide 25 mmol/L (22-30); Chloride 107 mmol/L (98-107); Estimated CRCL calculation 55 ml/min; Estimated Glomerular Filt Rate 51; Glucose 98 mg/dL (65-110); Potassium 3.9 mmol/L (3.4-5.0); Sodium 136 mmol/L (137-145); Total Protein 6.5 g/dL (6.3-8.2)
--- NOTE | 2024-12-04 11:13 | P.DS_ITS ---
DS: Admitting Diagnosis Discharge Date 12/04/2024 Admitting Diagnosis Sepsis UTI Rhabdomyolysis DS: Discharge Diagnosis Discharge Diagnosis (1) Sepsis: Qualifiers: Acute renal failure type: unspecified Sepsis acute organ dysfunction status: with acute organ dysfunction Sepsis type: sepsis due to unspecified organism Severe sepsis acute organ dysfunction type: acute renal failure Severe sepsis shock status: without septic shock Qualified Code(s): A41.9 - Sepsis, unspecified organism; R65.20 - Severe sepsis without septic shock; N17.9 - Acute kidney failure, unspecified Code(s): A41.9 - Sepsis, unspecified organism Status: Acute (2) UTI (urinary tract infection): Qualifiers: Hematuria presence: without hematuria Urinary tract infection type: acute cystitis Qualified Code(s): N30.00 - Acute cystitis without hematuria Code(s): N39.0 - Urinary tract infection, site not specified Status: Acute (3) Rhabdomyolysis: Qualifiers: Encounter type: initial encounter Rhabdomyolysis type: traumatic Qualified Code(s): T79.6XXA - Traumatic ischemia of muscle, initial encounter Code(s): M62.82 - Rhabdomyolysis Status: Inactive (4) VALERIE (acute kidney injury): Code(s): N17.9 - Acute kidney failure, unspecified Status: Inactive (5) Transaminitis: Code(s): R74.01 - Elevation of levels of liver transaminase levels Status: Inactive (6) Fall: Qualifiers: Encounter type: initial encounter Qualified Code(s): W19.XXXA - Unspecified fall, initial encounter Code(s): W19.XXXA - Unspecified fall, initial encounter Status: Acute DS: Summary Hospital Course Reason for hospitalization: Fall, Weakness Hospital Course: 74 y/o M with no significant known PMH presented with fall and weakness. The patient presented to [facility] ([facility] on 12/02 for further evaluation of fall and weakness. The patient reports he was walking to another part of his house when he had a fall, does not believe he passed out or lost consciousness. The patient was unable to get up for several hours, estimates 8 hrs, due to weakness. He was eventually able to get his arms underneath him and able to get himself lifted up. 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 Denies shortness of breath or shortness of breath with exertion, chest pain, palpitations, nausea, vomiting, diarrhea, constipation, focal weakness, focal numbness, abdominal pain, urinary frequency, fever, chills, or body aches. He does report possible dysuria. Patient is a poor historian at present. Initial VS at presentation: ?98.2? F, HR 91, RR 18, 131/89, and 94% on RA. ED workup showed: ?WBC 19.4, no anemia, normal coags, elevated D-dimer with a negative chest CTA, no significant electrolyte derangements, creatinine 1.89 and GFR 35 (1.07 and GFR >60 in 2020), total bilirubin 2.3, AST greater than 750, ALT 147, CK greater than 16,000, BNP 575 (normal when adjusted for age), initial troponin 0.013, and UA suggestive of UTI.? Head CT showed no significant abnormality.? Elbow XR was unremarkable.? C-spine CT showed moderate to severe cervical spondylosis with chronic appearing mild anterior vertebral height loss at C5 and C6, no acute osseous abnormality.? CXR showed clear lungs.? Chest CTA showed no evidence of PE/aortic dissection/aortic aneurysm and clear lungs.? EKG showed sinus rhythm, rate 96, borderline left axis deviation, incomplete RBBB, low-voltage QRS. Patient left against medical advice despite long discussion regarding the risks of leaving the hospital prematurely. Blood and urine cultures were drawn. Urine culture showed growth of Proteus mirabilis/penneri. Blood cultures preliminary result showed no growth of bacteria. Patient was continued on IV fluid hydration for rhabdomyolysis. Repeat creatinine kinase on 12/04 showed a CK level of 13,000, down trending from admission. Patient's kidney function also continued to improve throughout hospitalization, down trending from 1.89 upon admission to 1.36 on 12/04. Leukocytosis also continue to improve. It was recommended that the patient continued to remain hospitalized for IV antibiotics and continue therapy for rhabdomyolysis and VALERIE. Patient however very much wanted to be discharged today. I had a long discussion with him regarding the wrists of leaving at this time and patient continued to endorse wanting to be discharged at this time. I discussed that I would have to have the patient leave against medical advice day patient continued to agree to want to be discharged. Patient to reuse dense medical advice this time. He will be prescribed Augmentin for continued antibiotic coverage for his urinary tract infection and encouraged to maintain adequate oral hydration at home. He is also given strict return to ED precautions. Status at Discharge Functional status at discharge: uses cane/walker Overall status at discharge: patient is not back to baseline Time Spent with Patient Time attestation: Total time spent providing and/or coordinating discharge services: 48 Exam Narrative: ill appearing, obese. occasional ectopy. no mrumur. lungs clear. dry. Const: Other: , male, obese body habitus, ill-appearing Resp: Other: normal respiratory effort and not labored. Clear to auscultation, no crackles or wheezing Cardio: Other: Regular rate rhythm, Occasional ectopy, no appreciable murmur. GI: Other: Abdomen soft, nondistended, nontender. Normoactive bowel sounds in all quadrants. Skin: Other: Dry and warm, no rashes or wounds Neuro: Other: Generalized weakness, A&O x4 Extrem: Other: Normal to inspection Psych: Other: Fair insight and judgment DS: Data Data Completed and Pending Labs on day of discharge: Labs from last 24 hours 12/04/24 06:03 WBC 10.4 H RBC 3.74 L Hgb 12.9 L Hct 39.1 L MCV 104.5 H MCH 34.5 H MCHC 33.0 RDW 14.4 Plt Count 208 MPV 10.5 H Immature Gran % (Auto) 0.7 H Neut % (Auto) 72.4 Lymph % (Auto) 15.1 L Motley % (Auto) 10.7 H Eos % (Auto) 0.6 Baso % (Auto) 0.5 Lymph # (Auto) 1.57 Motley # (Auto) 1.1 H Eos # (Auto) 0.1 Baso # (Auto) 0.1 Abs Immat Gran (auto) 0.07 H Absolute Neuts (auto) 7.5 H Absolute Nucleated RBC 0.000 Nucleated RBC % 0.0 Sodium 136 L Potassium 3.9 Chloride 107 Carbon Dioxide 25 Anion Gap 4 BUN 20 Creatinine 1.36 H Estim Creat Clear Calc 55 Estimated GFR 51 L Glucose 98 Calcium 8.2 L Total Bilirubin 0.8 AST 454 H ALT 142 H Alkaline Phosphatase 73 Total Creatine Kinase 00925 H Total Protein 6.5 Albumin 3.0 L Discharge Plan Discharge Attending physician on discharge: Kody Connolly Consulting providers: Blake Medrano Discharging Clinician: Blake Medrano Anticipated Discharge Date/Time: 12/04/24 11:07 Patient Disposition: Left Against Medical Advice Activity: no straining and as tolerated Diet: heart healthy Discharge Instructions: Left Against medical advice Discharge disposition: Home Take medications as prescribed. You will be prescribed Augmentin for an additional 7 days. Take this the entire course. Monitor blood pressures Take caution while standing, rising, or moving Change positions slowly taking a break between each position change If you standing feel dizzy sit back down and take a break Return to the emergency department if he developed sudden shortness of breath, chest pain, nausea, vomiting, upset stomach or intractable diarrhea Return to the emergency department if you develop fever greater than 101.5 Follow-up with the primary care physician within 1-2 weeks You are leaving against medical advice and have been explained all the risks in leaving before you can receive a full work up in the hospital. Thank you for choosing [facility] for your healthcare needs Patient Language: Telugu Follow-up/Referrals: Jude Connor MD [Primary Care Provider] - Discharge Medications: New amoxicillin-pot clavulanate 875-125 mg tablet 1 tablet PO Q12H 7 Days Qty: 14 0RF Continued atorvastatin 40 mg tablet 40 mg PO DAILY Qty: 90 3RF Date of admission: 12/02/24 18:49 Primary Care Provider: Jude Connor Admitting Provider: Leonel Lyles Attending physician on admission: Leonel Lyles Quality VTE Prophylaxis VTE prophylaxis: pharmacologic ordered
== END 2024-12-04 11:27 | disposition left against medical advice (07) | DRG 872 ==
PROVIDERS: Student in an Organized Health Care Education/Training Program; Admitting Provider Internal Medicine; PCP Internal Medicine; Visit Provider Physician Assistant
DX: A41.9 Sepsis, unspecified organism (principal); N30.00 Acute cystitis without hematuria; N17.9 Acute kidney failure, unspecified; Z68.41 Body mass index [BMI] 40.0-44.9, adult; E66.813 Obesity, class 3; R65.20 Severe sepsis without septic shock; B96.4 Proteus (mirabilis) (morganii) as the cause of diseases classified elsewhere; T79.6XXA Traumatic ischemia of muscle, initial encounter; W19.XXXA Unspecified fall, initial encounter; R74.01 Elevation of levels of liver transaminase levels; M47.812 Spondylosis without myelopathy or radiculopathy, cervical region; Z79.899 Other long term (current) drug therapy
CPT/HCPCS: 36415; 80053; 82550; 83735; 84100; 85025; 96374; 96375; 99285; G0378; J0696; J7030